=== PATIENT | male | born 1985 | race Caucasian/White ===

== ENCOUNTER 2017-10-03 08:57 | Observation (INO) | payer OTHER ==
[~2017-10-03] VITALS: Ht 170.2 cm; Wt 117.2 kg
[~2017-10-03 08:57] MED LIST: ALBUAER2 INH; ATVUNK PO; FLUT230A INH; MONT1TAB3 PO
[2017-10-03] MEDS ORDERED: HYDROmorphone INJ 2 MG/ML SYR/VIAL IM STA ×2 (09:08→11:36)
[2017-10-03] MEDS ORDERED: KETOROLAC TROMETHAMINE 60 MG/2 ML VIAL IM STA (09:08)
[2017-10-03] MEDS ORDERED: ONDANSETRON 4MG OD TAB PO STA (09:08)
--- NOTE | 2017-10-03 09:12 | EMERGENCY ROOM VISIT NOTE ---
History Report prepared by Errol: Mani Daniels Under the Supervision of: Dr. Tano Ernst M.D. First contact with patient: 08:59 Stated Complaint: BACK PAIN History of Present Illness The patient is a 32 year old male who presents to the Emergency Room with complaints of lower back pain that began 12 hours ago. He has a past medical history of IBS and a previous L3/L4 injury that occurred 4 years ago. He states that his current symptoms are congruent with those of that past injury. Last night, the patient was using the restroom. When he bent over to stand up from the toilet, he began to experience excruciating sharp lower back pain. He then began to feel very lightheaded with muddled hearing and tunnel vision but did not lose consciousness or fall. He was able to ambulate to his bed to lie down. His pain worsens with movement and he is only able to ambulate short distances. His pain is improved with lying flat on his stomach. He denies any fevers, chills, chest pain, shortness of breath, nausea, vomiting, loss of bladder/bowel , weakness, or numbness. He states he did not receive any surgical procedures for his past episode of back pain and he followed up with PT. Source of History: patient Onset: 12 hours ago Position: back (lower) Symptom Intensity: excruciating Quality: sharp Timing: constant Modifying Factors (Worsening): movement Modifying Factors (Relieving): rest Associated Symptoms: No LOC, No fevers, No chills, No chest pain, No SOB, No nausea, No vomiting, No weakness, No numbness Review of Systems See HPI for pertinent positives & negatives. A total of 10 systems reviewed and were otherwise negative. Past Medical & Surgical Medical Problems: (1) Acute low back pain (2) Allergic rhinitis (3) Anxiety disorder (4) Asthma (5) Back pain (6) Dyslipidemia Surgical Problems: (1) Hx of cholecystectomy Family History Patient reports no known family medical history. Social History Smoking Status: Never Smoker Alcohol Use: occasionally Marital Status: Housing Status: lives with significant other Occupation Status: employed, unemployed Current/Historical Medications Scheduled Bupropion (Wellbutrin), 150 MG PO BID Fluticasone-Salmeterol 230/21 Mcg (Advair Hfa 230/21 Mcg), 2 PUFFS INH BID Loratadine (Claritin), 10 MG PO DAILY Montelukast Sodium (Singulair), 10 MG PO HS Tiotropium [place] (Spiriva Handihaler), 1 CAP INH DAILY Vortioxetine HBr (Trintellix), 10 MG PO DAILY Scheduled PRN Albuterol Hfa (Ventolin Hfa), 2-4 PUFFS INH Q6H PRN for SOB/Wheezing Cyclobenzaprine Hcl (Flexeril), 1 TAB PO TID PRN for Muscle Spasms Lorazepam (Lorazepam), 0.5 MG PO TID PRN for Anxiety Naproxen (Naproxen), 1 TAB PO BID PRN for Pain Allergies Coded Allergies: Fentanyl (Verified Allergy, Intermediate, SHORTNESS OF BREATH, 10/03/17) "FEEL BAD" Penicillins (Verified Allergy, Unknown, 10/03/17) Physical Exam Vital Signs Date Time Temp Pulse Resp B/P (MAP) Pulse Ox O2 Delivery O2 Flow Rate FiO2 10/03/17 13:52 83 141/75 96 Room Air 10/03/17 11:15 80 133/75 95 Room Air 10/03/17 08:58 36.7 87 20 145/88 97 Room Air Physical Exam GENERAL: Patient is a healthy-appearing well-nourished male, lying on his stomach, does not want to be touched. HEAD: Normocephalic atraumatic EYES: Ocular movements intact pupils equal and react to light OROPHARYNX mucous membranes are moist no exudates present no erythema or edema present NECK: Supple no nuchal rigidity CHEST: Good equal expansion LUNGS: Clear and equal to auscultation CARDIAC: Normal S1 and S2 ABDOMEN: Soft nontender no guarding BACK: No CVA tenderness, no evidence of saddle anesthesia. EXTREMITIES: No pain upon palpation normal muscle strength in all groups no clubbing cyanosis or edema NEURO: Patient is following commands and answering questions appropriately. Alert and oriented x3 Cranial Nerves 2-12 grossly intact Medical Decision & Procedures ER Provider Diagnostic Interpretation: Radiology results as stated below per my review and radiologist interpretation: MRI OF THE LUMBAR SPINE WITHOUT CONTRAST CLINICAL HISTORY: Severe back pain. COMPARISON STUDY: Lumbar spine MRI June 28, 2012. TECHNIQUE: Utilizing a 1.5 Mely magnet and dedicated coil, multiplanar, multiecho imaging of the lumbar spine was performed without IV contrast. FINDINGS: For purposes of numbering on this exam, the L5-S1 disc space is assigned to axial image 28 of 30. Alignment of the lumbar spine is anatomic. Vertebral body heights are maintained. There is no suspicious marrow replacement. Conus terminates at the lower L1 level. Paravertebral soft tissues are unremarkable. There is moderate disc space narrowing at L5-S1 and mild disc space narrowing at L4-L5. This has progressed since exam of June 28, 2012. L1-2: The central canal and neural foramen are patent. L2-3: The central canal and neural foramen are patent. L3-4: The central canal and neural foramen are patent. L4-5: There is a small central/left paracentral disc protrusion. This has decreased in size since exam of June 28, 2012. There is minimal narrowing of the left lateral recess. Central canal and neural foramen are patent. There is mild facet arthrosis at this level. L5-S1: There is disc space narrowing with a small central disc protrusion which has decreased in size since exam of June 28, 2012. Central canal and neural foramen are patent. There is minimal narrowing of both lateral recesses. IMPRESSION: 1. No acute abnormality within the lumbar spine by MRI. 2. Small central disc protrusion at L5-S1 and small left paracentral disc protrusion at L4-L5 which have decreased in size since exam of June 28, 2012. Patent central canal and neural foramen. Minimal lateral recess narrowing at L4-L5 and L5-S1, as above. Electronically signed by: Chito Gregg M.D. 10/03/2017 11:18 AM Dictated Date/Time: 10/03/2017 11:10 AM Medications Administered Medications (Trade) Dose Ordered Sig/Mahin Route Start Time Stop Time Status Last Admin Dose Admin Hydromorphone HCl (Dilaudid Inj) 2 mg NOW STAT IM 10/03/17 09:08 10/03/17 09:10 DC 10/03/17 09:25 2 MG Ketorolac Tromethamine (Toradol Inj) 60 mg NOW STAT IM 10/03/17 09:08 10/03/17 09:10 DC 10/03/17 09:24 60 MG Ondansetron HCl (Zofran Odt) 4 mg NOW STAT PO 10/03/17 09:08 10/03/17 09:10 DC 10/03/17 09:16 4 MG Hydromorphone HCl (Dilaudid Inj) 2 mg NOW STAT IM 10/03/17 11:36 10/03/17 11:38 DC 10/03/17 11:55 2 MG Lidocaine (Lidoderm Patch 5%) 1 patch QAM STAT TD 10/03/17 11:36 10/03/17 11:38 DC 10/03/17 11:56 1 PATCH Cyclobenzaprine HCl (Flexeril Tab) 10 mg NOW STAT PO 10/03/17 13:39 10/03/17 13:41 DC 10/03/17 13:52 10 MG Dexamethasone Sodium Phosphate 10 mg/Syringe 2.5 ml @ 1 mls/min NOW STAT IM 10/03/17 13:39 10/03/17 13:41 DC 10/03/17 13:58 1 MLS/MIN ED Course 0859: Past medical records reviewed. The patient was evaluated in room B8. A complete history and physical examination was performed. 0908: Ordered Zofran Odt 4 mg PO, Toradol Inj 60 mg IM, Dilaudid Inj 2 mg IM 1136: Ordered Lidocaine 1 patch TD, Dilaudid Inj 2 mg IM 1232: Upon reevaluation, the patient is resting. He will be consulted by orthopedics/physical therapy. Medical Decision Differential diagnosis: Etiologies such as musculoskeletal, disc herniation, fracture, aortic disease, metastatic disease, cord compression, discitis, infection, renal colic, gastrointestinal, acute exacerbation of chronic back pain, sciatica, cauda equina, as well as others were entertained. This is a 32-year-old male who presents to the emergency department complaining of loss of bowel control and severe back pain. The patient has a history of a slipped disc previously approximate 5 years ago. The patient did not require surgery for this. He was given 2 mg of Dilaudid in the emergency department. The patient is unable to walk due to severe pain or even sit up. For this reason he was sent for an MRI of the L-spine. The patient does not have any evidence of slipped disc. He was also given Toradol in the emergency department as well as Decadron an initial dose of Dilaudid. I did discuss the case with case management and had patient seen by physical therapy and occupational therapy who felt that the patient was a poor candidate for rehabilitation. For this reason he was discussed with the hospitalist service who agreed to admit the patient. Medication Reconcilliation Current Medication List: was personally reviewed by me Blood Pressure Screening Patient's blood pressure: Normal blood pressure Blood pressure disposition: Did not require urgent referral Impression Primary Impression: Acute low back pain Scribe Attestation The scribe's documentation has been prepared under my direction and personally reviewed by me in its entirety. I confirm that the note above accurately reflects all work, treatment, procedures, and medical decision making performed by me. Departure Information Dispostion Home / Self-Care Referrals Michael Lozano M.D. (PCP)
[2017-10-03] MEDS ORDERED: ATV5 PO (10:16)
[2017-10-03] MEDS ORDERED: VNTHFA/IN INH (10:16)
[2017-10-03] MEDS ORDERED: BUPR75TA20 PO (10:18)
--- NOTE | 2017-10-03 11:19 | DIAGNOSTIC IMAGING REPORT ---
MRI OF THE LUMBAR SPINE WITHOUT CONTRAST CLINICAL HISTORY: Severe back pain. COMPARISON STUDY: Lumbar spine MRI June 28, 2012. TECHNIQUE: Utilizing a 1.5 Mely magnet and dedicated coil, multiplanar, multiecho imaging of the lumbar spine was performed without IV contrast. FINDINGS: For purposes of numbering on this exam, the L5-S1 disc space is assigned to axial image 28 of 30. Alignment of the lumbar spine is anatomic. Vertebral body heights are maintained. There is no suspicious marrow replacement. Conus terminates at the lower L1 level. Paravertebral soft tissues are unremarkable. There is moderate disc space narrowing at L5-S1 and mild disc space narrowing at L4-L5. This has progressed since exam of June 28, 2012. L1-2: The central canal and neural foramen are patent. L2-3: The central canal and neural foramen are patent. L3-4: The central canal and neural foramen are patent. L4-5: There is a small central/left paracentral disc protrusion. This has decreased in size since exam of June 28, 2012. There is minimal narrowing of the left lateral recess. Central canal and neural foramen are patent. There is mild facet arthrosis at this level. L5-S1: There is disc space narrowing with a small central disc protrusion which has decreased in size since exam of June 28, 2012. Central canal and neural foramen are patent. There is minimal narrowing of both lateral recesses. IMPRESSION: 1. No acute abnormality within the lumbar spine by MRI. 2. Small central disc protrusion at L5-S1 and small left paracentral disc protrusion at L4-L5 which have decreased in size since exam of June 28, 2012. Patent central canal and neural foramen. Minimal lateral recess narrowing at L4-L5 and L5-S1, as above. Electronically signed by: Chito Gregg M.D. 10/03/2017 11:18 AM Dictated Date/Time: 10/03/2017 11:10 AM
[2017-10-03] MEDS ORDERED: LIDODERM (LIDOCAINE) PATCH 5% TD STA (11:36)
[2017-10-03] MEDS ORDERED: DEXAMETHASONE INJ 10 MG in SYRINGE 0 ML IM STA (13:39)
[2017-10-03] MEDS ORDERED: CYCLOBENZAPRINE HCL 5 MG TAB PO STA (13:39)
[2017-10-03] MEDS ORDERED: ACETAMINOPHEN 325 MG TAB PO PRN (14:30)
[2017-10-03] MEDS ORDERED: ONDANSETRON INJ 2 MG/ML 2 ML VIAL IV PRN (14:30)
[2017-10-03] MEDS ORDERED: NAPR500T3 PO (15:23)
[2017-10-03] MEDS ORDERED: VORT10TA12 PO (15:23)
[2017-10-03] MEDS ORDERED: SPRIN/30 INH (15:23)
[2017-10-03] MEDS ORDERED: LORA10TA51 PO (15:23)
[2017-10-03] MEDS ORDERED: CYCL10TA6 PO (15:23)
--- NOTE | 2017-10-03 16:11 | History and Physical ---
History & Physical Date & Time of Service: Oct 03, 2017 ~ 14:00 Chief Complaint: Back Pain Primary Care Physician: Kirill Parson M.D. History of Present Illness 32 year old male who presents to the ED with back pain. Patient reports he had a herniated disc about 5 years ago. He reports that since that time his back pain will flare up occasionally. He will take Flexeril and Percocet, leftover from his injury 5 years ago. Yesterday while standing from the toilet he felt a pulling in his low back and developed sudden onset of low back pain. He was able to talk back to bed to lay down. He reports pain with minimal movement. Pain slightly favors the left side. He is able to walk however he reports that due to the pain he is very rigid making it hard for him to walk and that his legs "will give out". He denies loss of bowel and bladder function. No radiation of the pain into the legs. He reports flu like symptoms for the past few weeks with generalized fatigue, cough, and episodes of nausea and vomiting. He feels like these symptoms are improving. No chest pain or shortness of breath. He denies lightheadedness, dizziness, diaphoresis, and syncopal events. In the ED, patient had a lumbar spine MRI that shows a small disc protrusion but no acute findings. Past Medical/Surgical History Medical Problems: (1) Acute low back pain Status: Resolved (2) Allergic rhinitis Status: Chronic (3) Anxiety disorder Status: Chronic (4) Asthma Status: Chronic (5) Dyslipidemia Status: Chronic Surgical Problems: (1) Hx of cholecystectomy Status: Resolved Family History Patient reports no known family medical history. Social History Smoking Status: Never Smoker Alcohol Use: occasionally Immunizations History of Influenza Vaccine: Yes Influenza Vaccine Date: Aug 29, 2017 History of Tetanus Vaccine?: Yes Tetanus Immunization Date: Aug 27, 2010 History of Pneumococcal: Yes Pneumococcal Date: Aug 26, 2015 History of Hepatitis B Vaccine: Yes Hepatitis Immunization Date: Jun 02, 1994 Multi-Drug Resistant Organisms History of MDRO: No Allergies Coded Allergies: Fentanyl (Verified Allergy, Intermediate, SHORTNESS OF BREATH, 10/03/17) "FEEL BAD" Penicillins (Verified Allergy, Unknown, 10/03/17) Home Medications Scheduled Bupropion (Wellbutrin), 150 MG PO BID Fluticasone-Salmeterol 230/21 Mcg (Advair Hfa 230/21 Mcg), 2 PUFFS INH BID Loratadine (Claritin), 10 MG PO DAILY Montelukast Sodium (Singulair), 10 MG PO HS Tiotropium [place] (Spiriva Handihaler), 1 CAP INH DAILY Vortioxetine HBr (Trintellix), 10 MG PO DAILY Scheduled PRN Albuterol Hfa (Ventolin Hfa), 2-4 PUFFS INH Q6H PRN for SOB/Wheezing Cyclobenzaprine Hcl (Flexeril), 1 TAB PO TID PRN for Muscle Spasms Lorazepam (Lorazepam), 0.5 MG PO TID PRN for Anxiety Naproxen (Naproxen), 1 TAB PO BID PRN for Pain Review of Systems ROS per HPI, all other systems reviewed and negative Physical Exam Vital Signs Date Time Temp Pulse Resp B/P (MAP) Pulse Ox O2 Delivery O2 Flow Rate FiO2 10/03/17 13:52 83 141/75 96 Room Air 10/03/17 11:15 80 133/75 95 Room Air 10/03/17 08:58 36.7 87 20 145/88 97 Room Air General Appearance: WD/WN, no apparent distress Head: normocephalic, atraumatic Eyes: normal inspection, EOMI, sclerae normal ENT: hearing grossly normal, + pertinent finding (mucous membranes moist) Neck: supple, no JVD, trachea midline Respiratory/Chest: lungs clear, normal breath sounds, no respiratory distress Cardiovascular: regular rate, rhythm, no edema, normal peripheral pulses Abdomen/GI: normal bowel sounds, non tender, soft, no organomegaly Back: + pertinent finding (pain with palpation of lumbar spine) Extremities/Musculoskelatal: normal inspection, no calf tenderness, normal capillary refill Neurologic/Psych: no motor/sensory deficits, alert, normal mood/affect, oriented x 3 Skin: normal color, warm/dry Diagnostics Laboratory Results Results Past 24 Hours Test 10/03/17 14:30 Range/Units Diagnostic Radiology LUMBAR SPINE MRI IMPRESSION: 1. No acute abnormality within the lumbar spine by MRI. 2. Small central disc protrusion at L5-S1 and small left paracentral disc protrusion at L4-L5 which have decreased in size since exam of June 28, 2012. Patent central canal and neural foramen. Minimal lateral recess narrowing at L4-L5 and L5-S1, as above. Impression Assessment and Plan BACK PAIN - admit to med/surg - patient presenting with acute onset of lumbar back pain that started last night; has history of disc herniation in 2011 and has had intermittent back pain flares since then - MRI done in the ED shows small disc protrusion; no acute findings - will start Prednisone, around the clock Flexeril; PRN [place] - PT/OT, spine ortho consults ASTHMA - no signs of acute exacerbation - continue home inhalers ANXIETY, DEPRESSION - continue home meds DVT PROPHYLAXIS - SQ Lovenox DISPO - The patient will be placed as observation status for now until further work up is complete. Agree with above H and P. Briefly 32 M comes with severe back pain since last night. Patient says he had herniated disc five years ago and since then he has flares once in awhile. Currently sleeping on his abdomen. Pain is under control with pain meds. Denies chest pain or sob. Has some cough.No nausea p/e Ge alert and oriented. Obese. 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 Y/N: Yes Risk Level: Moderate
[2017-10-03] MEDS ORDERED: IV FLUIDS COMPLETED PRN (16:30)
[2017-10-03 16:55] VITALS: BP 138/77; PULSE 93; TEMP 36.7; O2SAT 93
[2017-10-03 17:00] VITALS: Ht 170.2 cm; Wt 117.2 kg
[2017-10-03 17:33] LABS: HEMATOCRIT 43.7 % (42-52); HEMOGLOBIN 15.4 g/dL (14.0-18.0); MEAN CELL VOLUME 87.8 fL (80-100); MEAN CORPUSCULAR HEMOGLOBIN 30.9 pg (25-34); MEAN CORPUSCULAR HGB CONC 35.2 g/dl (32-36); MEAN PLATELET VOLUME 9.2 fL (7.4-10.4); PLATELET COUNT 216 K/uL (130-400); RED CELL DISTRIBUTION WIDTH CV 13.6 % (11.5-14.5); RED CELL DISTRIBUTION WIDTH SD 43.5 fL (36.4-46.3); WHITE BLOOD COUNT 8.65 K/uL (4.8-10.8)
[2017-10-03 17:58] LABS: BLOOD UREA NITROGEN 15 mg/dl (7-18); CALCIUM 8.6 mg/dl (8.5-10.1); CARBON DIOXIDE 30 mmol/L (21-32); CREATININE 1.21 mg/dl (0.60-1.40); GLUCOSE 164 mg/dl (70-99); POTASSIUM 4.3 mmol/L (3.5-5.1); SODIUM 136 mmol/L (136-145)
[2017-10-03] MEDS: PATIENT'S HEIGHT AND/OR WEIGHT NEEDED SCH ×2 (20:30→22:55)
[2017-10-03] MEDS: MONTELUKAST SOD 10 MG TAB PO SCH (21:29)
[2017-10-03] MEDS: CYCLOBENZAPRINE HCL 10 MG TAB PO SCH (21:29)
[2017-10-03] MEDS: HYDROCODONE/ACETAMINOPHEN 7.5/325MG TAB PO PRN (22:06)
[2017-10-03 22:48] VITALS: BP 134/78; PULSE 89; TEMP 36.7; O2SAT 96
[2017-10-04 07:54] VITALS: BP 120/69; PULSE 72; TEMP 36.8; O2SAT 95
[2017-10-04] MEDS: TRINTELLIX: ORDER AWAITING ACTION SCH ×4 (08:00→23:50)
[2017-10-04] MEDS: HYDROCODONE/ACETAMINOPHEN 7.5/325MG TAB PO PRN ×3 (08:32→23:50)
[2017-10-04] MEDS: LORATADINE 10 MG TAB PO SCH (08:33)
[2017-10-04] MEDS: TIOTROPIUM BROMIDE 5 PUFF/90 MCG INH INH SCH (08:33)
[2017-10-04] MEDS: CYCLOBENZAPRINE HCL 10 MG TAB PO SCH ×3 (08:33→21:17)
[2017-10-04] MEDS: ENOXAPARIN 40 MG/0.4 ML SYR SQ SCH (08:41)
[2017-10-04 10:31] VITALS: O2SAT 94
--- NOTE | 2017-10-04 11:42 | Orthopedic Consultation ---
Orthopedic Consultation Date of Consultation: Oct 04, 2017. Attending Physician: Renetta Gutierrez DO Reason for Consultation: back pain History of Present Illness A pleasant 32-year-old gentleman we are asked to see in consultation for lower back pain. He reports his pain started about a day and a half ago. No specific accident, trauma, fall. No radicular leg pain. He states he had a similar episode about 5 years ago that resolved without treatment. He ambulates independently. Denies bowel or bladder changes. He has been taking some occasional Flexeril which he had at home for his pain. He reports pain was uncontrolled yesterday that he went to the emergency room where he was admitted to the hospitalist service for pain control. He reports standing and sitting reproduce his pain. Lying Prone or activity is palliative. Family History Patient reports no known family medical history. Social History Smoking Status: Never Smoker Alcohol Use: occasionally Housing Status: lives with significant other Allergies Coded Allergies: Fentanyl (Verified Allergy, Intermediate, SHORTNESS OF BREATH, 10/03/17) "FEEL BAD" Penicillins (Verified Allergy, Unknown, 10/03/17) Home Medications Scheduled Bupropion (Wellbutrin), 150 MG PO BID Fluticasone-Salmeterol 230/21 Mcg (Advair Hfa 230/21 Mcg), 2 PUFFS INH BID Loratadine (Claritin), 10 MG PO DAILY Montelukast Sodium (Singulair), 10 MG PO HS Tiotropium [place] (Spiriva Handihaler), 1 CAP INH DAILY Vortioxetine HBr (Trintellix), 10 MG PO DAILY Scheduled PRN Albuterol Hfa (Ventolin Hfa), 2-4 PUFFS INH Q6H PRN for SOB/Wheezing Cyclobenzaprine Hcl (Flexeril), 1 TAB PO TID PRN for Muscle Spasms Lorazepam (Lorazepam), 0.5 MG PO TID PRN for Anxiety Naproxen (Naproxen), 1 TAB PO BID PRN for Pain Current Inpatient Medications Current Inpatient Medications Medications (Trade) Dose Ordered Sig/Mahin Route Start Time Stop Time Status Last Admin Dose Admin Enoxaparin Sodium (Lovenox Inj) 40 mg Q24H SQ 10/04/17 09:00 11/03/17 08:59 Acetaminophen (Tylenol Tab) 650 mg Q4H PRN PO 10/03/17 14:30 11/02/17 14:29 Ondansetron HCl (Zofran Inj) 4 mg Q6H PRN IV 10/03/17 14:30 11/02/17 14:29 Prednisone (PredniSONE TAB) 40 mg DAILY PO 10/03/17 15:15 10/07/17 09:01 10/04/17 08:33 40 MG Cyclobenzaprine HCl (Flexeril Tab) 10 mg TID PO 10/03/17 21:00 11/02/17 20:59 10/04/17 08:33 10 MG Acetaminophen/ Hydrocodone Bitart ([place] 7.5/325 Tab) 1 tab Q8H PRN PO 10/03/17 15:15 10/17/17 15:14 10/04/17 08:32 1 TAB Bupropion HCl (Wellbutrin Tab) 150 mg BID PO 10/03/17 21:00 11/02/17 20:59 10/04/17 08:33 150 MG Loratadine (Claritin Tab) 10 mg DAILY PO 10/04/17 09:00 11/03/17 08:59 10/04/17 08:33 10 MG Montelukast Sodium (Singulair Tab) 10 mg HS PO 10/03/17 21:00 11/02/17 20:59 10/03/17 21:29 10 MG Tiotropium [place] (Spiriva Handihaler Inhaler) 1 puff DAILY INH 10/04/17 09:00 11/03/17 08:59 10/04/17 08:33 1 PUFF Miscellaneous Information (Order Awaiting Action) 1 ea QS N/A 10/04/17 00:00 11/03/17 00:00 Miscellaneous (Iv Fluids Completed) 1 ea PRN PRN N/A 10/03/17 16:30 10/03/18 16:29 Salmeterol Xinafoate/ Fluticasone (Advair Hfa 230/ 21 Inh) 2 puff BID INH 10/04/17 09:00 11/03/17 08:59 Review of Systems back pain Physical Exam Date Time Temp Pulse Resp B/P (MAP) Pulse Ox O2 Delivery O2 Flow Rate FiO2 10/04/17 10:31 94 Room Air 10/04/17 08:00 Room Air 10/04/17 07:54 36.8 72 16 120/69 (86) 95 Room Air 10/03/17 23:45 Room Air 10/03/17 22:48 36.7 89 18 134/78 (96) 96 Room Air 10/03/17 17:00 Room Air 10/03/17 17:00 Room Air 10/03/17 16:55 36.7 93 20 138/77 (97) 93 Room Air 10/03/17 16:29 88 127/97 96 10/03/17 13:52 83 141/75 96 Room Air Patient is lying in a prone position in bed. He reports he is unable to sit on the edge of the bed for me to do a more thorough bench exam. He has no abnormal skin markings with focal lumbar spine. He is superficially tender to palpation throughout the midline lower lumbar spine as well as paravertebral musculature. Lower extremities neurovascularly intact. Calves are soft and nontender bilaterally. General Appearance: + mild distress Head: normocephalic Eyes: normal inspection ENT: hearing grossly normal Neck: supple Respiratory/Chest: no respiratory distress Cardiovascular: regular rate, rhythm Abdomen/GI: soft Back: + muscle spasm, + paravertebral tenderness Extremities/Musculoskelatal: normal inspection, normal capillary refill Neurologic/Psych: oriented x 3 Skin: normal color Laboratory Results Last 24 Hours Test 10/03/17 17:21 White Blood Count 8.65 K/uL Red Blood Count 4.98 M/uL Hemoglobin 15.4 g/dL Hematocrit 43.7 % Mean Corpuscular Volume 87.8 fL Mean Corpuscular Hemoglobin 30.9 pg Mean Corpuscular Hemoglobin Concent 35.2 g/dl RDW Standard Deviation 43.5 fL RDW Coefficient of Variation 13.6 % Platelet Count 216 K/uL Mean Platelet Volume 9.2 fL Prothrombin Time 10.2 SECONDS Prothromb Time International Ratio 1.0 Sodium Level 136 mmol/L Potassium Level 4.3 mmol/L Chloride Level 103 mmol/L Carbon Dioxide Level 30 mmol/L Anion Gap 3.0 mmol/L Blood Urea Nitrogen 15 mg/dl Creatinine 1.21 mg/dl Estimated GFR () 90.0 Estimated GFR (Non- 77.6 BUN/Creatinine Ratio 12.1 Random Glucose 164 mg/dl Calcium Level 8.6 mg/dl Patient Name: NEDA BISHOP Unit Number: [id number] Dictated: 10/03/171109 Transcribed: 10/03/171109 JA Printed Date/Time: [~ rep prt dt]/[~ rep prt tm] [~ rep ct labl] - [~ rep ct ivnm] [facility] [place] [address] Dictated: 10/03/171109 Transcribed: 10/03/171109 JA Printed Date/Time: [~ rep prt dt]/[~ rep prt tm] [~ rep ct labl] - [~ rep ct ivnm] [~ rep ct add3]] MRI OF THE LUMBAR SPINE WITHOUT CONTRAST CLINICAL HISTORY: Severe back pain. COMPARISON STUDY: Lumbar spine MRI June 28, 2012. TECHNIQUE: Utilizing a 1.5 Mley magnet and dedicated coil, multiplanar, multiecho imaging of the lumbar spine was performed without IV contrast. FINDINGS: For purposes of numbering on this exam, the L5-S1 disc space is assigned to axial image 28 of 30. Alignment of the lumbar spine is anatomic. Vertebral body heights are maintained. There is no suspicious marrow replacement. Conus terminates at the lower L1 level. Paravertebral soft tissues are unremarkable. There is moderate disc space narrowing at L5-S1 and mild disc space narrowing at L4-L5. This has progressed since exam of June 28, 2012. L1-2: The central canal and neural foramen are patent. L2-3: The central canal and neural foramen are patent. L3-4: The central canal and neural foramen are patent. L4-5: There is a small central/left paracentral disc protrusion. This has decreased in size since exam of June 28, 2012. There is minimal narrowing of the left lateral recess. Central canal and neural foramen are patent. There is mild facet arthrosis at this level. L5-S1: There is disc space narrowing with a small central disc protrusion which has decreased in size since exam of June 28, 2012. Central canal and neural foramen are patent. There is minimal narrowing of both lateral recesses. IMPRESSION: 1. No acute abnormality within the lumbar spine by MRI. 2. Small central disc protrusion at L5-S1 and small left paracentral disc protrusion at L4-L5 which have decreased in size since exam of June 28, 2012. Patent central canal and neural foramen. Minimal lateral recess narrowing at L4-L5 and L5-S1, as above. Electronically signed by: Chito Gregg M.D. 10/03/2017 11:18 AM Dictated Date/Time: 10/03/2017 11:10 AM The status of this report is Signed. Draft = Not yet reviewed or approved by Radiologist. Signed = Reviewed and approved by Radiologist. <AttendingPhy></AttendingPhy> <FamilyPhy>No Doctor, Assigned</FamilyPhy> < PrimaryPhy>No Doctor, Assigned</PrimaryPhy> <UnitNumber>[id number]</UnitNumber> <VisitNumber>[id number]</VisitNumber> <PatientName>NEDA BISHOP CA</ PatientName> <DateOfBirth>1985</DateOfBirth> <Location>C[facility]</Location> < ServiceDate>10/03/17</ServiceDate> <MNE>ESINDI</MNE> <OrderingPhy>Tano Ernst MD</OrderingPhy> <OrderingPhyMNE>f rep ord dr alcocer</OrderingPhyMNE> < DictatingPhyMNE>f rep dict dr alcocer</DictatingPhyMNE> <CCListMNE>f rep ct leodan</ CCListMNE> <AdmittingPhyMNE>f pt admit dr alcocer</AdmittingPhyMNE> <AttendingPhyMNE >f pt attend dr alcocer</AttendingPhyMNE> <ConsultingPhyMNE>f pt consult dr alcocer</ConsultingPhyMNE> <FamilyPhyMNE>f pt fam dr alcocer</FamilyPhyMNE> <OtherPhyMNE>f pt other dr alcocer</OtherPhyMNE> < PrimaryPhyMNE>f pt prim care dr alcocer</PrimaryPhyMNE> <ReferringPhyMNE>f pt referring dr alcocer</ReferringPhyMNE> Assessment & Plan Assessment: Acute lower back pain Plan: MRI is also been reviewed with Dr. Rivera. There are no acute surgical indications. Would recommend pain control measures coupled with physical therapy. If this does not make any improvement in his pain would consider pain management evaluation. We will sign off for now. Please not hesitate to contact us if you have any further questions.
[2017-10-04 12:27] VITALS: BP 129/62; PULSE 82; TEMP 36.7; O2SAT 91
[2017-10-04] MEDS: FLUTIC INH SCH ×2 (14:28→21:17)
[2017-10-04] MEDS: SALMET INH SCH ×2 (14:28→21:17)
[2017-10-04 15:30] VITALS: BP 122/62; PULSE 88; TEMP 36.7; O2SAT 94
--- NOTE | 2017-10-04 17:30 | Progress Note ---
Subjective Date of Service: Oct 04, 2017. Subjective Pt evaluation today including: conversation w/ patient, physical exam, lab review, review of studies, review of inpatient medication list Saw/examined the patient in room 360 He continues to have low back pain laying on his stomach Review of Systems Respiratory: No shortness of breath Cardiac: No chest pain Musculoskeletal: + see HPI, + joint pain, + muscle pain Heme: No abnormal bleeding/bruising Medications Current Inpatient Medications Medications (Trade) Dose Ordered Sig/Mahin Route Start Time Stop Time Status Last Admin Dose Admin Enoxaparin Sodium (Lovenox Inj) 40 mg Q24H SQ 10/04/17 09:00 11/03/17 08:59 Acetaminophen (Tylenol Tab) 650 mg Q4H PRN PO 10/03/17 14:30 11/02/17 14:29 Ondansetron HCl (Zofran Inj) 4 mg Q6H PRN IV 10/03/17 14:30 11/02/17 14:29 Prednisone (PredniSONE TAB) 40 mg DAILY PO 10/03/17 15:15 10/07/17 09:01 10/04/17 08:33 40 MG Cyclobenzaprine HCl (Flexeril Tab) 10 mg TID PO 10/03/17 21:00 11/02/17 20:59 10/04/17 15:13 10 MG Bupropion HCl (Wellbutrin Tab) 150 mg BID PO 10/03/17 21:00 11/02/17 20:59 10/04/17 08:33 150 MG Loratadine (Claritin Tab) 10 mg DAILY PO 10/04/17 09:00 11/03/17 08:59 10/04/17 08:33 10 MG Montelukast Sodium (Singulair Tab) 10 mg HS PO 10/03/17 21:00 11/02/17 20:59 10/03/17 21:29 10 MG Tiotropium [place] (Spiriva Handihaler Inhaler) 1 puff DAILY INH 10/04/17 09:00 11/03/17 08:59 10/04/17 08:33 1 PUFF Miscellaneous Information (Order Awaiting Action) 1 ea QS N/A 10/04/17 00:00 11/03/17 00:00 Miscellaneous (Iv Fluids Completed) 1 ea PRN PRN N/A 10/03/17 16:30 10/03/18 16:29 Salmeterol Xinafoate/ Fluticasone (Advair Hfa 230/ 21 Inh) 2 puff BID INH 10/04/17 09:00 11/03/17 08:59 10/04/17 14:28 2 PUFF Acetaminophen/ Hydrocodone Bitart ([place] 7.5/325 Tab) 1 tab Q6 PRN PO 10/04/17 13:45 10/17/17 15:14 10/04/17 15:18 1 TAB Objective Vital Signs Date Time Temp Pulse Resp B/P (MAP) Pulse Ox O2 Delivery O2 Flow Rate FiO2 10/04/17 15:30 36.7 88 20 122/62 (82) 94 Room Air 10/04/17 12:27 36.7 82 16 129/62 (84) 91 Room Air 10/04/17 10:31 94 Room Air 10/04/17 08:00 Room Air 10/04/17 07:54 36.8 72 16 120/69 (86) 95 Room Air 10/03/17 23:45 Room Air 10/03/17 22:48 36.7 89 18 134/78 (96) 96 Room Air Physical Exam General Appearance: no apparent distress, + obese Respiratory/Chest: lungs clear, normal breath sounds, no respiratory distress, no accessory muscle use Cardiovascular: regular rate, rhythm, no edema, no murmur Extremities: + pertinent finding (tender to palpation in the sacral region of back; painful ROM) Laboratory Results Last 24 Hours Test 10/03/17 17:21 White Blood Count 8.65 K/uL Red Blood Count 4.98 M/uL Hemoglobin 15.4 g/dL Hematocrit 43.7 % Mean Corpuscular Volume 87.8 fL Mean Corpuscular Hemoglobin 30.9 pg Mean Corpuscular Hemoglobin Concent 35.2 g/dl RDW Standard Deviation 43.5 fL RDW Coefficient of Variation 13.6 % Platelet Count 216 K/uL Mean Platelet Volume 9.2 fL Prothrombin Time 10.2 SECONDS Prothromb Time International Ratio 1.0 Sodium Level 136 mmol/L Potassium Level 4.3 mmol/L Chloride Level 103 mmol/L Carbon Dioxide Level 30 mmol/L Anion Gap 3.0 mmol/L Blood Urea Nitrogen 15 mg/dl Creatinine 1.21 mg/dl Estimated GFR () 90.0 Estimated GFR (Non- 77.6 BUN/Creatinine Ratio 12.1 Random Glucose 164 mg/dl Calcium Level 8.6 mg/dl Assessment and Plan This is a 32 year old male with a PMH of asthma, depression - presents with lower back pain Lower Back Pain L5-S1 Protrusion Muscle Spasm patient continues to have pain Lumbar spine MRI improved from previous appreciate ortho input - no surgical intervention continued PT/OT possible rehab discharge will use [place] PRN for pain, Flexeril for muscle spasm prednisone x5 days Asthma continue home inhalers Depression continue home medications; controlled Morbid Obesity patient with BMI >40 counseled on weight loss; patient states he is working on it on his own DVT ppx Lovenox FULL CODE
[2017-10-04] MEDS: MONTELUKAST SOD 10 MG TAB PO SCH (21:17)
[2017-10-04 22:52] VITALS: BP 111/71; PULSE 84; TEMP 36.8; O2SAT 96
[2017-10-05] MEDS: SALMET INH SCH ×2 (07:17→20:28)
[2017-10-05] MEDS: FLUTIC INH SCH ×2 (07:17→20:28)
[2017-10-05] MEDS: TRINTELLIX: ORDER AWAITING ACTION SCH ×2 (07:17→16:00)
[2017-10-05] MEDS: LORATADINE 10 MG TAB PO SCH (07:18)
[2017-10-05] MEDS: TIOTROPIUM BROMIDE 5 PUFF/90 MCG INH INH SCH (07:18)
[2017-10-05] MEDS: CYCLOBENZAPRINE HCL 10 MG TAB PO SCH ×3 (07:19→20:28)
[2017-10-05] MEDS: ENOXAPARIN 40 MG/0.4 ML SYR SQ SCH (07:20)
[2017-10-05 07:24] VITALS: BP 134/83; PULSE 78; TEMP 37; O2SAT 95
[2017-10-05 08:08] VITALS: O2SAT 95
[2017-10-05] MEDS: HYDROCODONE/ACETAMINOPHEN 7.5/325MG TAB PO PRN ×2 (09:04→19:02)
--- NOTE | 2017-10-05 14:35 | Progress Note ---
Subjective Date of Service: Oct 05, 2017. Subjective Pt evaluation today including: conversation w/ patient, physical exam, lab review, review of studies, review of inpatient medication list Saw/examined the patient in room 360 +pain persists states he's taking a nap and doesn't want to talk right now Review of Systems Constitutional: + weakness Musculoskeletal: + joint pain Medications Current Inpatient Medications Medications (Trade) Dose Ordered Sig/Mahin Route Start Time Stop Time Status Last Admin Dose Admin Enoxaparin Sodium (Lovenox Inj) 40 mg Q24H SQ 10/04/17 09:00 11/03/17 08:59 10/05/17 07:20 40 MG Acetaminophen (Tylenol Tab) 650 mg Q4H PRN PO 10/03/17 14:30 11/02/17 14:29 Ondansetron HCl (Zofran Inj) 4 mg Q6H PRN IV 10/03/17 14:30 11/02/17 14:29 Prednisone (PredniSONE TAB) 40 mg DAILY PO 10/03/17 15:15 10/07/17 09:01 10/05/17 07:19 40 MG Cyclobenzaprine HCl (Flexeril Tab) 10 mg TID PO 10/03/17 21:00 11/02/17 20:59 10/05/17 07:19 10 MG Bupropion HCl (Wellbutrin Tab) 150 mg BID PO 10/03/17 21:00 11/02/17 20:59 10/05/17 07:19 150 MG Loratadine (Claritin Tab) 10 mg DAILY PO 10/04/17 09:00 11/03/17 08:59 10/05/17 07:18 10 MG Montelukast Sodium (Singulair Tab) 10 mg HS PO 10/03/17 21:00 11/02/17 20:59 10/04/17 21:17 10 MG Tiotropium [place] (Spiriva Handihaler Inhaler) 1 puff DAILY INH 10/04/17 09:00 11/03/17 08:59 10/05/17 07:18 1 PUFF Miscellaneous Information (Order Awaiting Action) 1 ea QS N/A 10/04/17 00:00 11/03/17 00:00 Miscellaneous (Iv Fluids Completed) 1 ea PRN PRN N/A 10/03/17 16:30 10/03/18 16:29 Salmeterol Xinafoate/ Fluticasone (Advair Hfa 230/ 21 Inh) 2 puff BID INH 10/04/17 09:00 11/03/17 08:59 10/05/17 07:17 2 PUFF Acetaminophen/ Hydrocodone Bitart ([place] 7.5/325 Tab) 1 tab Q6 PRN PO 10/04/17 13:45 10/17/17 15:14 10/05/17 09:04 1 TAB Objective Vital Signs Date Time Temp Pulse Resp B/P (MAP) Pulse Ox O2 Delivery O2 Flow Rate FiO2 10/05/17 08:08 95 Room Air 10/05/17 07:24 37.0 78 18 134/83 (100) 95 Room Air 10/04/17 23:50 Room Air 10/04/17 22:52 36.8 84 20 111/71 (84) 96 Room Air 10/04/17 20:00 Room Air 10/04/17 15:30 36.7 88 20 122/62 (82) 94 Room Air Physical Exam General Appearance: no apparent distress, + obese Extremities: + pertinent finding (decreased ROM; painful to tenderness) Assessment and Plan This is a 32 year old male with a PMH of asthma, depression - presents with lower back pain Lower Back Pain L5-S1 Protrusion Muscle Spasm 10/05 [place] PRN, Flexeril prednisone total 5 days patient refusing to participate with PT/OT plan to d/c home consulted pain management for outpatient regimen 10/04 patient continues to have pain Lumbar spine MRI improved from previous appreciate ortho input - no surgical intervention continued PT/OT possible rehab discharge will use [place] PRN for pain, Flexeril for muscle spasm prednisone x5 days Asthma continue home inhalers Depression continue home medications; controlled Morbid Obesity patient with BMI >40 counseled on weight loss; patient states he is working on it on his own DVT ppx Lovenox FULL CODE
[2017-10-05 16:00] VITALS: BP 124/77; PULSE 79; TEMP 36.4; O2SAT 97
[2017-10-05] MEDS: MONTELUKAST SOD 10 MG TAB PO SCH (20:28)
[2017-10-05 22:56] VITALS: BP 128/85; PULSE 80; TEMP 37.7; O2SAT 97
[2017-10-06] MEDS: HYDROCODONE/ACETAMINOPHEN 7.5/325MG TAB PO PRN ×2 (01:07→18:20)
[2017-10-06 07:19] VITALS: BP 125/78; PULSE 92; TEMP 36.8; O2SAT 93
[2017-10-06] MEDS: VORTIOXETINE HBR 10 MG TAB PO SCH (09:00)
[2017-10-06] MEDS: FLUTIC INH SCH ×2 (09:45→20:56)
[2017-10-06] MEDS: SALMET INH SCH ×2 (09:45→20:56)
[2017-10-06] MEDS: TIOTROPIUM BROMIDE 5 PUFF/90 MCG INH INH SCH (09:46)
[2017-10-06] MEDS: ENOXAPARIN 40 MG/0.4 ML SYR SQ SCH (09:48)
[2017-10-06] MEDS: GABAPENTIN 300 MG CAP PO SCH ×3 (09:49→20:56)
[2017-10-06] MEDS: LORATADINE 10 MG TAB PO SCH (09:49)
[2017-10-06] MEDS: LIDODERM (LIDOCAINE) PATCH 5% TD SCH (09:51)
[2017-10-06] MEDS: BACLOFEN 10 MG TAB PO SCH ×3 (09:51→20:56)
[2017-10-06] MEDS: MELOXICAM 7.5 MG TAB PO SCH ×2 (09:51→20:56)
--- NOTE | 2017-10-06 10:33 | Pain Management Consultation ---
Pain Management Consultation Date of Consultation Oct 06, 2017. Reason for Consultation Low back pain Pain Location 1 - History 32-year-old obese male with 100% axial low back pain. He states that he was getting up from his toilet and felt sudden onset of pain without known injury. He reports 1 prior episode of the same pain occurring in 2011 that resolved with physical therapy. He reports that it's difficult to sleep and walk secondary to pain. He reports that pain is improved with rest and narcotics. He admits that a significant component of his pain is secondary to spasm and characterizes his pain as aching cramping and tight. He denies any distal radicular symptoms, bowel or bladder incontinence, motor weakness, foot drop, falls, fever, chills, other constitutional complaints. He reports that it's been difficult to perform physical therapy during this admission secondary to pain. He does note that his pain has slightly improved since admission. Pain is currently ranging from 3.5-10 out of 10 depending on activity level. Past Medical/Surgical History (1) Acute low back pain (2) Asthma exacerbation (3) Back pain (4) Allergic rhinitis (5) Dyslipidemia (6) Asthma (7) Anxiety disorder (8) Hx of cholecystectomy Family History Patient reports no known family medical history. 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 Allergies Coded Allergies: Fentanyl (Verified Allergy, Intermediate, SHORTNESS OF BREATH, 10/03/17) "FEEL BAD" Penicillins (Verified Allergy, Unknown, 10/03/17) Medications Current Inpatient Medications Medications (Trade) Dose Ordered Sig/Mahin Route Start Time Stop Time Status Last Admin Dose Admin Enoxaparin Sodium (Lovenox Inj) 40 mg Q24H SQ 10/04/17 09:00 11/03/17 08:59 10/06/17 09:48 40 MG Acetaminophen (Tylenol Tab) 650 mg Q4H PRN PO 10/03/17 14:30 11/02/17 14:29 Ondansetron HCl (Zofran Inj) 4 mg Q6H PRN IV 10/03/17 14:30 11/02/17 14:29 Prednisone (PredniSONE TAB) 40 mg DAILY PO 10/03/17 15:15 1/20/18 09:01 10/06/17 09:47 40 MG Bupropion HCl (Wellbutrin Tab) 150 mg BID PO 10/03/17 21:00 11/02/17 20:59 10/06/17 09:47 150 MG Loratadine (Claritin Tab) 10 mg DAILY PO 10/04/17 09:00 11/03/17 08:59 10/06/17 09:49 10 MG Montelukast Sodium (Singulair Tab) 10 mg HS PO 10/03/17 21:00 11/02/17 20:59 10/05/17 20:28 10 MG Tiotropium [place] (Spiriva Handihaler Inhaler) 1 puff DAILY INH 10/04/17 09:00 11/03/17 08:59 10/06/17 09:46 1 PUFF Miscellaneous (Iv Fluids Completed) 1 ea PRN PRN N/A 10/03/17 16:30 10/03/18 16:29 Salmeterol Xinafoate/ Fluticasone (Advair Hfa 230/ 21 Inh) 2 puff BID INH 10/04/17 09:00 11/03/17 08:59 10/06/17 09:45 2 PUFF Acetaminophen/ Hydrocodone Bitart ([place] 7.5/325 Tab) 1 tab Q6 PRN PO 10/04/17 13:45 10/17/17 15:14 10/06/17 01:07 1 TAB Vortioxetine (Trintellix) 10 mg DAILY PO 10/06/17 09:00 11/05/17 08:59 10/06/17 09:00 10 MG Meloxicam (Mobic Tab) 7.5 mg BID PO 10/06/17 09:00 11/05/17 08:59 10/06/17 09:51 7.5 MG Lidocaine (Lidoderm Patch 5%) 1 patch QAM TD 10/06/17 09:00 11/05/17 08:59 10/06/17 09:51 1 PATCH Miscellaneous (Remove Lidoderm Patch) 1 ea DAILY@21 N/A 10/06/17 21:00 11/05/17 20:59 Baclofen (Lioresal Tab) 10 mg TID PO 10/06/17 09:00 11/05/17 08:59 10/06/17 09:51 10 MG Gabapentin (Neurontin Cap) 300 mg TID PO 10/06/17 09:00 11/05/17 08:59 10/06/17 09:49 300 MG Review of Systems 10 point review of systems was otherwise negative aside from HPI Physical Exam Height & Weight: Height 5 feet, 7.00 inches. Weight 117.250 (Kilograms) 258 (Pounds) Last Vital Signs Documentation Date Time Temp Pulse Resp B/P (MAP) Pulse Ox O2 Delivery O2 Flow Rate FiO2 10/06/17 07:19 36.8 92 18 125/78 (94) 93 Room Air Exam: GENERAL: 32-year-old obese male who is awake, alert and oriented. Appears well developed. Is in no distress at the present time. Upon insurance to the room he was sleeping on his belly PSYCHIATRIC: Demonstrates normal and clear sensorium. Mood and affect are appropriate. Short-term and long-term memory is intact. HEAD AND NECK: No obvious trauma. Demonstrates full range of motion of the cervical spine. No lymphadenopathy is noted. Trachea midline. No thyromegaly noted. EARS, EYES AND NOSE: Mucous membranes pink and moist. No mucosal lesions noted. Tongue midline. LUNGS: Clear to auscultation in all lung león. Normal chest excursion. CARDIAC: Regular rate and rhythm ABDOMEN: Normal bowel sounds. Soft nontender. No organomegaly appreciated. Obese BACK: Inspection of the lumbar spine demonstrates normal curvatures. No lesions are noted in the lumbar spine region. Provocative testing of the facet joints is marginally positive over bilateral L5 to S1. The sacroiliac joints and greater trochanters bilaterally are nontender. Mild to moderate myofascial tenderness without any discrete trigger points are noted over the lumbar paraspinous musculature. Neurologically, straight leg raising is equivocal bilaterally past 90 NEUROLOGICAL: Cranial nerves II through XII grossly intact. No gross sensory or motor deficits noted in the upper extremity. Sensation and motor strength in the lower extremity are symmetrical without deficit. No pathologic reflexes are noted in the lower extremities. Gait is not observed. Patient did not feel comfortable getting out of bed Reflexes: patellar Reflex L [+2] R [+2] Achilles Reflex L [+]2 R [+2] Laboratory Laboratory Results (Last CBC): 10/03/17 17:21 Imaging MRI: non enhanced, reports reviewed MRI Findings Patient: NEDA BISHOP Address1: [address] [facility] Rec: [id number] Address2: [facility] [address] ID: [id number] [facility] Zip: [place] [address] Date: 1985 Sex: M Room/Bed: Ref Phy: No Doctor, Assigned SC: BABARB Att Phy: Report #: [id number] Phuong Phy: No Doctor, Assigned Test: LSWOC Admit Phy: Food Service Sales Representatives: CUSTCH Interpreting Phy: Chito Gregg MD Diagnosis: BACK PAIN Ordering Phy: Tano Ernst MD Service Date: 10/03/17 Admit Date: 10/03/17 MNE: [id number] CONF: DICTATED BY: Chito Gregg MD]] CC: Tano Ernst MD No Doctor, Assigned Endcc: [~ rep ct add3]] MRI OF THE LUMBAR SPINE WITHOUT CONTRAST CLINICAL HISTORY: Severe back pain. COMPARISON STUDY: Lumbar spine MRI June 28, 2012. TECHNIQUE: Utilizing a 1.5 Mely magnet and dedicated coil, multiplanar, multiecho imaging of the lumbar spine was performed without IV contrast. FINDINGS: For purposes of numbering on this exam, the L5-S1 disc space is assigned to axial image 28 of 30. Alignment of the lumbar spine is anatomic. Vertebral body heights are maintained. There is no suspicious marrow replacement. Conus terminates at the lower L1 level. Paravertebral soft tissues are unremarkable. There is moderate disc space narrowing at L5-S1 and mild disc space narrowing at L4-L5. This has progressed since exam of June 28, 2012. L1-2: The central canal and neural foramen are patent. L2-3: The central canal and neural foramen are patent. L3-4: The central canal and neural foramen are patent. L4-5: There is a small central/left paracentral disc protrusion. This has decreased in size since exam of June 28, 2012. There is minimal narrowing of the left lateral recess. Central canal and neural foramen are patent. There is mild facet arthrosis at this level. L5-S1: There is disc space narrowing with a small central disc protrusion which has decreased in size since exam of June 28, 2012. Central canal and neural foramen are patent. There is minimal narrowing of both lateral recesses. IMPRESSION: 1. No acute abnormality within the lumbar spine by MRI. 2. Small central disc protrusion at L5-S1 and small left paracentral disc protrusion at L4-L5 which have decreased in size since exam of June 28, 2012. Patent central canal and neural foramen. Minimal lateral recess narrowing at L4-L5 and L5-S1, as above. Opioid Risk Assessment Risk assessment performed, minimal risk identified Assessment 1. Small disc protrusion at L4 to 5 and L5-S1 2. Lumbago 3. Obesity Recommendations 1. Recommend initiation of gabapentin 300 mg by mouth 3 times a day. 2. Recommend conversion from Flexeril to baclofen 10 mg by mouth every 8 when necessary spasm 3. Recommend initiation of Lidoderm patch 4. Patient should participate in physical therapy. We had a long talk since he spontaneously recovered with therapy in the past about planning for 6 weeks of outpatient physical therapy prior to any interventional pain treatment. 5. I gave him my office contact information so that he could contact us after he has completed a course of outpatient physical therapy should he continue to have pain. 6. Thank you for this consultation please call with any questions
--- NOTE | 2017-10-06 13:48 | Progress Note ---
Subjective Date of Service: Oct 06, 2017. Subjective Pt evaluation today including: conversation w/ patient, physical exam, lab review, review of studies, review of inpatient medication list Saw/examined the patient in room 360 Laying on his stomach; tells me pain is slightly improved, but he cannot stand up Empty tray of food at bedside; states he struggled to eat due to the pain Review of Systems Musculoskeletal: + joint pain Medications Current Inpatient Medications Medications (Trade) Dose Ordered Sig/Mahin Route Start Time Stop Time Status Last Admin Dose Admin Enoxaparin Sodium (Lovenox Inj) 40 mg Q24H SQ 10/04/17 09:00 11/03/17 08:59 10/06/17 09:48 40 MG Acetaminophen (Tylenol Tab) 650 mg Q4H PRN PO 10/03/17 14:30 11/02/17 14:29 Ondansetron HCl (Zofran Inj) 4 mg Q6H PRN IV 10/03/17 14:30 11/02/17 14:29 Prednisone (PredniSONE TAB) 40 mg DAILY PO 10/03/17 15:15 10/07/17 09:01 10/06/17 09:47 40 MG Bupropion HCl (Wellbutrin Tab) 150 mg BID PO 10/03/17 21:00 11/02/17 20:59 10/06/17 09:47 150 MG Loratadine (Claritin Tab) 10 mg DAILY PO 10/04/17 09:00 11/03/17 08:59 10/06/17 09:49 10 MG Montelukast Sodium (Singulair Tab) 10 mg HS PO 10/03/17 21:00 11/02/17 20:59 10/05/17 20:28 10 MG Tiotropium [place] (Spiriva Handihaler Inhaler) 1 puff DAILY INH 10/04/17 09:00 11/03/17 08:59 10/06/17 09:46 1 PUFF Miscellaneous (Iv Fluids Completed) 1 ea PRN PRN N/A 10/03/17 16:30 10/03/18 16:29 Salmeterol Xinafoate/ Fluticasone (Advair Hfa 230/ 21 Inh) 2 puff BID INH 10/04/17 09:00 11/03/17 08:59 10/06/17 09:45 2 PUFF Acetaminophen/ Hydrocodone Bitart ([place] 7.5/325 Tab) 1 tab Q6 PRN PO 10/04/17 13:45 10/17/17 15:14 10/06/17 01:07 1 TAB Vortioxetine (Trintellix) 10 mg DAILY PO 10/06/17 09:00 11/05/17 08:59 10/06/17 09:00 10 MG Meloxicam (Mobic Tab) 7.5 mg BID PO 10/06/17 09:00 11/05/17 08:59 10/06/17 09:51 7.5 MG Lidocaine (Lidoderm Patch 5%) 1 patch QAM TD 10/06/17 09:00 11/05/17 08:59 10/06/17 09:51 1 PATCH Miscellaneous (Remove Lidoderm Patch) 1 ea DAILY@21 N/A 10/06/17 21:00 11/05/17 20:59 Baclofen (Lioresal Tab) 10 mg TID PO 10/06/17 09:00 11/05/17 08:59 10/06/17 09:51 10 MG Gabapentin (Neurontin Cap) 300 mg TID PO 10/06/17 09:00 11/05/17 08:59 10/06/17 09:49 300 MG Objective Vital Signs Date Time Temp Pulse Resp B/P (MAP) Pulse Ox O2 Delivery O2 Flow Rate FiO2 10/06/17 08:00 Room Air 10/06/17 07:19 36.8 92 18 125/78 (94) 93 Room Air 10/05/17 23:15 Room Air 10/05/17 22:56 37.7 80 17 128/85 (99) 97 Room Air 10/05/17 16:00 36.4 79 18 124/77 (93) 97 Room Air 10/05/17 15:45 Room Air Physical Exam General Appearance: no apparent distress, + obese Respiratory/Chest: no respiratory distress, no accessory muscle use Comments: decreased and painful ROM of back; no muscle spasms noted; no erythema, swelling /redness Assessment and Plan This is a 32 year old male with a PMH of asthma, depression - presents with lower back pain Lower Back Pain L5-S1 Protrusion Muscle Spasm 10/06 appreciate pain management input will give gabapentin 300mg TID, Baclofen for muscle spasms [place] PRN for pain, Meloxicam and Lidoderm patch added no new updates; stable for discharge; home vs. rehab - he is refusing to work with PT/OT due to pain suggested he go home, but he tells me he can't due to pain changed diet to low fat due to morbid obesity 10/05 [place] PRN, Flexeril prednisone total 5 days patient refusing to participate with PT/OT plan to d/c home consulted pain management for outpatient regimen 10/04 patient continues to have pain Lumbar spine MRI improved from previous appreciate ortho input - no surgical intervention continued PT/OT possible rehab discharge will use [place] PRN for pain, Flexeril for muscle spasm prednisone x5 days Asthma continue home inhalers Depression continue home medications; controlled Morbid Obesity patient with BMI >40 counseled on weight loss; patient states he is working on it on his own DVT ppx Lovenox FULL CODE
[2017-10-06 15:12] VITALS: BP 125/75; PULSE 93; TEMP 36.8; O2SAT 93
[2017-10-06] MEDS: MONTELUKAST SOD 10 MG TAB PO SCH (20:56)
[2017-10-06 22:52] VITALS: BP 123/77; PULSE 95; TEMP 37.2; O2SAT 94
[2017-10-07 00:10] VITALS: O2SAT 94
[2017-10-07] MEDS: HYDROCODONE/ACETAMINOPHEN 7.5/325MG TAB PO PRN ×3 (01:14→17:52)
[2017-10-07] MEDS: VORTIOXETINE HBR 10 MG TAB PO SCH (09:00)
[2017-10-07] MEDS: SALMET INH SCH (09:44)
[2017-10-07] MEDS: FLUTIC INH SCH (09:44)
[2017-10-07] MEDS: GABAPENTIN 300 MG CAP PO SCH ×2 (09:45→14:08)
[2017-10-07] MEDS: LORATADINE 10 MG TAB PO SCH (09:45)
[2017-10-07] MEDS: MELOXICAM 7.5 MG TAB PO SCH (09:45)
[2017-10-07] MEDS: TIOTROPIUM BROMIDE 5 PUFF/90 MCG INH INH SCH (09:45)
[2017-10-07] MEDS: LIDODERM (LIDOCAINE) PATCH 5% TD SCH (09:45)
[2017-10-07] MEDS: BACLOFEN 10 MG TAB PO SCH ×2 (09:46→14:08)
[2017-10-07] MEDS: ENOXAPARIN 40 MG/0.4 ML SYR SQ SCH (09:48)
--- NOTE | 2017-10-07 14:51 | Progress Note ---
Subjective Date of Service: Oct 07, 2017. Subjective Pt evaluation today including: conversation w/ patient, physical exam, lab review, review of studies, review of inpatient medication list Saw/examined the patient in room 360 He feels much better pain resolved able to walk does not want to go to nursing facility or rehab; okay to go home Review of Systems Musculoskeletal: No joint pain (resolved) Medications Current Inpatient Medications Medications (Trade) Dose Ordered Sig/Mahin Route Start Time Stop Time Status Last Admin Dose Admin Enoxaparin Sodium (Lovenox Inj) 40 mg Q24H SQ 10/04/17 09:00 11/03/17 08:59 10/07/17 09:48 40 MG Acetaminophen (Tylenol Tab) 650 mg Q4H PRN PO 10/03/17 14:30 11/02/17 14:29 Ondansetron HCl (Zofran Inj) 4 mg Q6H PRN IV 10/03/17 14:30 11/02/17 14:29 Bupropion HCl (Wellbutrin Tab) 150 mg BID PO 10/03/17 21:00 11/02/17 20:59 10/07/17 09:47 150 MG Loratadine (Claritin Tab) 10 mg DAILY PO 10/04/17 09:00 11/03/17 08:59 10/07/17 09:45 10 MG Montelukast Sodium (Singulair Tab) 10 mg HS PO 10/03/17 21:00 11/02/17 20:59 10/06/17 20:56 10 MG Tiotropium [place] (Spiriva Handihaler Inhaler) 1 puff DAILY INH 10/04/17 09:00 11/03/17 08:59 10/07/17 09:45 1 PUFF Miscellaneous (Iv Fluids Completed) 1 ea PRN PRN N/A 10/03/17 16:30 10/03/18 16:29 Salmeterol Xinafoate/ Fluticasone (Advair Hfa 230/ 21 Inh) 2 puff BID INH 10/04/17 09:00 11/03/17 08:59 10/07/17 09:44 2 PUFF Acetaminophen/ Hydrocodone Bitart (Spr[place] 7.5/325 Tab) 1 tab Q6 PRN PO 10/04/17 13:45 10/17/17 15:14 10/07/17 09:50 1 TAB Vortioxetine (Trintellix) 10 mg DAILY PO 10/06/17 09:00 11/05/17 08:59 10/07/17 09:00 10 MG Meloxicam (Mobic Tab) 7.5 mg BID PO 10/06/17 09:00 11/05/17 08:59 10/07/17 09:45 7.5 MG Lidocaine (Lidoderm Patch 5%) 1 patch QAM TD 10/06/17 09:00 11/05/17 08:59 10/07/17 09:45 1 PATCH Miscellaneous (Remove Lidoderm Patch) 1 ea DAILY@21 N/A 10/06/17 21:00 11/05/17 20:59 10/06/17 20:55 1 EA Baclofen (Lioresal Tab) 10 mg TID PO 10/06/17 09:00 11/05/17 08:59 10/07/17 14:08 10 MG Gabapentin (Neurontin Cap) 300 mg TID PO 10/06/17 09:00 11/05/17 08:59 10/07/17 14:08 300 MG Objective Vital Signs Date Time Temp Pulse Resp B/P (MAP) Pulse Ox O2 Delivery O2 Flow Rate FiO2 10/07/17 07:45 Room Air 10/07/17 00:10 94 Room Air 10/06/17 22:52 37.2 95 20 123/77 (92) 94 Room Air 10/06/17 16:00 Room Air 10/06/17 15:12 36.8 93 18 125/75 (92) 93 Room Air Physical Exam General Appearance: + obese Respiratory/Chest: no respiratory distress, no accessory muscle use Extremities: normal inspection, no pedal edema Assessment and Plan This is a 32 year old male with a PMH of asthma, depression - presents with lower back pain Lower Back Pain L5-S1 Protrusion Muscle Spasm 10/07 he's doing much better today can d/c home with gabapentin, baclofen and Spray combination 10/06 appreciate pain management input will give gabapentin 300mg TID, Baclofen for muscle spasms Spray PRN for pain, Meloxicam and Lidoderm patch added no new updates; stable for discharge; home vs. rehab - he is refusing to work with PT/OT due to pain suggested he go home, but he tells me he can't due to pain changed diet to low fat due to morbid obesity 10/05 Spray PRN, Flexeril prednisone total 5 days patient refusing to participate with PT/OT plan to d/c home consulted pain management for outpatient regimen 10/04 patient continues to have pain Lumbar spine MRI improved from previous appreciate ortho input - no surgical intervention continued PT/OT possible rehab discharge will use Spray PRN for pain, Flexeril for muscle spasm prednisone x5 days Asthma continue home inhalers Depression continue home medications; controlled Morbid Obesity patient with BMI >40 counseled on weight loss; patient states he is working on it on his own DVT ppx Lovenox FULL CODE
[2017-10-07] MEDS ORDERED: HYDR-3983 PO (14:55)
[2017-10-07] MEDS ORDERED: ACET-1047 PO (14:55)
[2017-10-07] MEDS ORDERED: LRS10 PO (14:55)
[2017-10-07] MEDS ORDERED: NRN300 PO (14:55)
--- NOTE | 2017-10-07 15:03 | Discharge Instructions ---
Discharge Instructions Date of Service Oct 07, 2017. Admission Reason for Admission: Back Pain Discharge Discharge Diagnosis / Problem: Low Back Pain, Muscle Spasm Discharge Goals Goal(s): Decrease discomfort, Improve function, Diagnostic testing, Therapeutic intervention Activity Recommendations Activity Limitations: per Instructions/Follow-up section . Instructions / Follow-Up Instructions / Follow-Up Please follow-up with Dr. Parson on October 11 at 11:05AM * You will be prescribed Mcintosh - please do not drive while taking this medication and only take this medication as needed * You will be given Baclofen and gabapentin - take these for muscle spasms * Please follow-up with primary care and possibly an outpatient affirmative action specialist regarding weight loss Current Hospital Diet Patient's current hospital diet: Low Fat Diet Discharge Diet Recommended Diet: Regular Diet Pending Studies Studies pending at discharge: no Medical Emergencies . Who to Call and When: Medical Emergencies: If at any time you feel your situation is an emergency, please call 911 immediately. . Non-Emergent Contact Non-Emergency issues call your: Primary Care Provider . . "Provider Documentation" section prepared by Renetta Gutierrez. . VTE Core Measure Inpt VTE Proph given/why not?: Enoxaparin (Lovenox) [place] Drug Monitoring Program Search Results: patient reviewed within database, no issues identified
--- NOTE | 2017-10-07 15:05 | Discharge Summary ---
Discharge Summary Date of Service Oct 07, 2017. Discharge Summary Admission Date: Oct 03, 2017 at 14:32 Discharge Date: Oct 07, 2017 Discharge Disposition: Home Principal Diagnosis: Low Back Pain Sacral Muscle Spasms Medication Reconciliation New Medications: Acetaminophen (Mapap) 325 Mg Tab 650 MG PO Q6 PRN for Pain or Fever for 5 Days, #40 TAB Baclofen (Baclofen) 10 Mg Tab 10 MG PO TID for 5 Days, #15 TAB Gabapentin (Gabapentin) 300 Mg Cap 300 MG PO TID for 15 Days, #45 CAP Hydrocodone/Acetaminophen 7.5MG/325MG (Dickens 7.5MG/325MG) Tab 1 TAB PO Q6 PRN for severe pain for 5 Days, #20 TAB PRN PAIN Continued Medications: Albuterol Hfa (Ventolin Hfa) 200 Puffs/04910 Mcg Aers 2-4 PUFFS INH Q6H PRN for SOB/Wheezing, #1 INHALER Bupropion (Wellbutrin) 75 Mg Tab 150 MG PO BID, TAB Cyclobenzaprine Hcl (Flexeril) 10 Mg Tab 1 TAB PO TID PRN for Muscle Spasms for 30 Days, #90 TAB Fluticasone-Salmeterol 230/21 Mcg (Advair Hfa 230/21 Mcg) 1 Aer Aer 2 PUFFS INH BID, AER Loratadine (Claritin) 10 Mg Tab 10 MG PO DAILY Lorazepam (Lorazepam) 0.5 Mg Tab 0.5 MG PO TID PRN for Anxiety Montelukast Sodium (Singulair) 10 Mg Tab 10 MG PO HS, TAB Naproxen (Naproxen) 500 Mg Tab 1 TAB PO BID PRN for Pain for 30 Days, #60 TAB 1 Refill Tiotropium [place] (Spiriva Handihaler) 30 Puff/540 Mcg Aerp 1 CAP INH DAILY for 30 Days, #30 CAP 3 Refills Vortioxetine HBr (Trintellix) 10 Mg Tab 10 MG PO DAILY Admission Information HPI (per Admitting provider): 32 year old male who presents to the ED with back pain. Patient reports he had a herniated disc about 5 years ago. He reports that since that time his back pain will flare up occasionally. He will take Flexeril and Percocet, leftover from his injury 5 years ago. Yesterday while standing from the toilet he felt a pulling in his low back and developed sudden onset of low back pain. He was able to talk back to bed to lay down. He reports pain with minimal movement. Pain slightly favors the left side. He is able to walk however he reports that due to the pain he is very rigid making it hard for him to walk and that his legs "will give out". He denies loss of bowel and bladder function. No radiation of the pain into the legs. He reports flu like symptoms for the past few weeks with generalized fatigue, cough, and episodes of nausea and vomiting. He feels like these symptoms are improving. No chest pain or shortness of breath. He denies lightheadedness, dizziness, diaphoresis, and syncopal events. In the ED, patient had a lumbar spine MRI that shows a small disc protrusion but no acute findings. Physical Exam (per Admitting): General Appearance: WD/WN, no apparent distress Head: normocephalic, atraumatic Eyes: normal inspection, EOMI, sclerae normal ENT: hearing grossly normal, + pertinent finding (mucous membranes moist) Neck: supple, no JVD, trachea midline Respiratory/Chest: lungs clear, normal breath sounds, no respiratory distress Cardiovascular: regular rate, rhythm, no edema, normal peripheral pulses Abdomen/GI: normal bowel sounds, non tender, soft, no organomegaly Back: + pertinent finding (pain with palpation of lumbar spine) Extremities/Musculoskelatal: normal inspection, no calf tenderness, normal capillary refill Neurologic/Psych: no motor/sensory deficits, alert, normal mood/affect, oriented x 3 Skin: normal color, warm/dry Hospital Course This is a 32 year old male with a PMH of asthma, depression - presents with lower back pain Lower Back Pain L5-S1 Protrusion Muscle Spasm 10/07 he's doing much better today can d/c home with gabapentin, baclofen and Dickens combination 10/06 appreciate pain management input will give gabapentin 300mg TID, Baclofen for muscle spasms [place] PRN for pain, Meloxicam and Lidoderm patch added no new updates; stable for discharge; home vs. rehab - he is refusing to work with PT/OT due to pain suggested he go home, but he tells me he can't due to pain changed diet to low fat due to morbid obesity 10/05 Dickens PRN, Flexeril prednisone total 5 days patient refusing to participate with PT/OT plan to d/c home consulted pain management for outpatient regimen 10/04 patient continues to have pain Lumbar spine MRI improved from previous appreciate ortho input - no surgical intervention continued PT/OT possible rehab discharge will use Dickens PRN for pain, Flexeril for muscle spasm prednisone x5 days Asthma continue home inhalers Depression continue home medications; controlled Morbid Obesity patient with BMI >40 counseled on weight loss; patient states he is working on it on his own DVT ppx Lovenox FULL CODE Total time spent on discharge = 20 minutes This includes examination of the patient, discharge planning, medication reconciliation, and communication with other providers. Discharge Instructions Please follow-up with Dr. Parson on October 11 at 11:05AM * You will be prescribed Dickens - please do not drive while taking this medication and only take this medication as needed * You will be given Baclofen and gabapentin - take these for muscle spasms * Please follow-up with primary care and possibly an outpatient belting and webbing inspector regarding weight loss
[2017-10-07 15:17] VITALS: BP 134/76; PULSE 95; TEMP 37.1; O2SAT 97
[2017-10-07 17:26] VITALS: BP 134/76; PULSE 95; TEMP 37.1; O2SAT 97
== END 2017-10-07 18:55 | disposition home or self-care (01) ==
LOC: EDBD 08:57 → C.EDB 08:58 → C.MSW 14:32 → SUPCPDRO 14:33 → ENRESERV 15:48
PROVIDERS: ADMIT Internal Medicine; ATTEND Family Medicine
DX: M54.5 Low back pain (principal); M62.830 Muscle spasm of back; E78.5 Hyperlipidemia, unspecified; J45.909 Unspecified asthma, uncomplicated; F32.9 Major depressive disorder, single episode, unspecified; Z90.49 Acquired absence of other specified parts of digestive tract; E66.9 Obesity, unspecified; Z68.41 Body mass index [BMI] 40.0-44.9, adult

== ENCOUNTER 2024-12-21 07:15 | Observation (INO) ==
--- NOTE | 2024-12-21 07:38 | Emergency Department Note ---
History of Present Illness General Chief complaint: Back Injury/Pain Stated complaint: BACK INJURY Time Seen by Provider: 12/21/24 07:17 History of Present Illness Maximum Pain Intensity: 8 This is a 39-year-old male that presents to the emergency department via EMS with complaints of "low back pain". Patient notes history of similar occurring intermittently over the past several years. No trauma or injury recently. The patient states that normally he is able to manage the pain with baclofen/similar and the pain will lo on its own. However the patient notes that this past evening around 8 PM he was ambulating and developed low back pain. It has progressively worsened since that time to a point where he notes that he could not move without severe pain therefore EMS was summoned. Patient is that he had to be extracted from the second floor of his home by EMS. The patient notes the pain is in the low back and radiates down the legs intermittently. Patient notes this feels identical to previous exacerbations of his low back pain. Reportedly the patient received 100 mcg of fentanyl and route +4 mg of Zofran. This did help his pain but he felt some nausea he notes with the medication. I will note that there is a listed allergy in the EMR however the patient does not seem to show any signs of allergic reaction to this medication. 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 Per review of the EMR patient was seen on 10/03/2017 for low back pain. Patient at that time underwent MRI of the L-spine which showed no acute abnormality within the lumbar spine. Small central disc protrusion L5-S1 and small left paracentral disc protrusion at L4-L5 which has decreased in size since the June 28, 2012 examination. There was comment of patent central canal and neural foramina. Minimal lateral recess narrowing at L4-L5 and L5-S1. Patient ultimately on that visit was admitted noting ongoing discomfort and severe pain with walking. Patient was then seen by orthopedic ep specialist the following day on 10/04/2017. Plan at that time was pain control measures in conjunction with physical therapy. No acute surgical indication at that time. Home Medications Medication Instructions Recorded Confirmed Type loratadine 10 mg tablet (Claritin) 10 mg PO HS 07/23/21 12/21/24 History montelukast 10 mg tablet 10 mg PO HS 07/23/21 12/21/24 History (Singulair) fluticasone fur. 200 mcg-umeclid 1 inh inhalation DAILY 12/21/24 12/21/24 History 62.5 mcg-vilant 25 mcg inhalat.powder (Trelegy Ellipta) guaifenesin 600 mg tablet, 600 mg PO Q12H 12/21/24 12/21/24 History extended release 12 hr Allergies Allergy/AdvReac Type Severity Reaction Status Date / Time fentanyl Allergy Intermediate SHORTNESS Verified 12/21/24 08:16 OF BREATH Penicillins Allergy Unknown Verified 12/21/24 08:16 Past Med/Surg History Problem List (Updated 12/21/24 @ 13:30 by Clara Clifford PA-C) Elevated random blood glucose level Ambulatory dysfunction Discogenic low back pain Lumbar radiculopathy (Acute) Asthma exacerbation (Acute) Back pain Medical History Dyslipidemia (06/28/12) Asthma (06/28/12) Anxiety disorder (06/28/12) Allergic rhinitis (06/28/12) Surgical History No history of previous surgery Family History (Updated 12/21/24 @ 13:23 by Clara Clifford PA-C) Other Diabetes Social History (Updated 12/21/24 @ 13:22 by Clara Clifford PA-C) Smoking Status: Never smoker Hx Alcohol Use: No Hx Substance Use: No Preferred Language: Togolese Current Living Situation: Alone Feels Safe at Home: Yes Review of Systems A total of 10 systems reviewed and were otherwise negative Physical Exam Vital Signs Vital Signs - 24 hr 12/21/24 07:22 12/21/24 07:31 12/21/24 09:08 Temperature 36.8 C Temperature Source Oral Pulse Rate 93 H Pulse Rate [Left Finger] 78 Respiratory Rate 18 15 Respiratory Effort / Characteristics Non-Labored Spontaneous Non-Labored Spontaneous Respiratory Depth Normal Normal Respiratory Pattern Regular Regular Blood Pressure 141/92 H Blood Pressure [Left Arm] 136/80 Blood Pressure Mean 108 Blood Pressure Mean [Left Arm] 98 Pulse Oximetry 96 96 94 Oxygen Delivery Method Room Air Room Air Room Air Sepsis Recent Fever Within 48 Hours No Sepsis New/Unexplained Change in Mental Status N/A Sepsis Action Taken by Nursing No Action Required 12/21/24 11:00 Temperature Temperature Source Pulse Rate Pulse Rate [Left Finger] 80 Respiratory Rate 17 Respiratory Effort / Characteristics Non-Labored Spontaneous Respiratory Depth Normal Respiratory Pattern Regular Blood Pressure Blood Pressure [Left Arm] 127/89 Blood Pressure Mean Blood Pressure Mean [Left Arm] 101 Pulse Oximetry 92 Oxygen Delivery Method Room Air Sepsis Recent Fever Within 48 Hours Sepsis New/Unexplained Change in Mental Status Sepsis Action Taken by Nursing VITAL SIGNS - Vital signs and nursing notes were reviewed. Hypertensive, otherwise stable and afebrile. GENERAL -39-year-old male appearing his stated age who is in no acute distress. Patient is resting in a prone position on the examination bed. Communicates well with provider and answers questions appropriately. SKIN - Without rashes. No meningeal or petechial rash. HEAD - NC/AT. EYES - PERRL with EOMI bilaterally. Sclera anicteric. EARS - No deformities of external structures noted on gross examination bilaterally. NOSE - Midline and without cyanosis. No epistaxis or purulent drainage noted. MOUTH/OROPHARYNX - Without perioral cyanosis. NECK - Neck with FROM. No nuchal rigidity. LUNGS - Chest wall symmetric without accessory muscle use, intercostals retractions, or central cyanosis. Normal vesicular breath sounds CTA B/L. No wheezes, rales, or rhonchi appreciated. CARDIAC - RRR MSKthere is tenderness to palpation overlying the L-spine spinous processes and paraspinous musculature of the L-spine ABDOMEN - Abdominal contour normal without pulsations or visible masses. BS normoactive all four quadrants. No tenderness, palpable masses, hepatosplenomegaly, or ascites noted. EXTREMITIES - No clubbing or peripheral cyanosis. +5/5 strength noted in UE/LE bilaterally. Achilles reflexes within normal limits. NEUROLOGIC - Cranial nerves II through XII grossly intact. Sensory intact to light touch throughout. PSYCH -alert, oriented and pleasant on examination Course Administered Medications Discontinued Medications Acetaminophen (Acetaminophen 325 Mg Tab) 650 mg PO NOW STA Stop: 12/21/24 07:32 Last Admin: 12/21/24 07:45 Dose: 650 mg Documented By: KMO Dexamethasone Sodium Phosphate (DexamethasonePf 10 Mg/Ml Vial) 10 mg IV NOW ONE Stop: 12/21/24 08:45 Last Admin: 12/21/24 08:48 Dose: 10 mg Documented By: BREN Hydromorphone HCl (Hydromorphone Inj 0.5 Mg/0.5 Ml Syr) 0.5 mg IV NOW STA Stop: 12/21/24 08:45 Last Admin: 12/21/24 08:47 Dose: 0.5 mg Documented By: BREN Ibuprofen (Ibuprofen 600 Mg Tab) 600 mg PO NOW STA Stop: 12/21/24 13:11 Last Admin: 12/21/24 13:43 Dose: 600 mg Documented By: BREN Ketorolac Tromethamine (Ketorolac Tromethamine 15 Mg/Ml Vial) 10 mg IV NOW ONE Stop: 12/21/24 07:32 Last Admin: 12/21/24 07:46 Dose: 10 mg Documented By: BREN Lidocaine (Lidocaine 5% 1 Patch) 1 patch TD NOW STA Stop: 12/21/24 07:32 Last Admin: 12/21/24 07:46 Dose: 1 patch Documented By: BREN Medical Decision Making Laboratory Data 12/21/24 07:35 12/21/24 07:35 Lab Results 12/21/24 Range/Units 07:35 WBC 10.04 (4.8-10.8) K/ul RBC 4.71 (4.70-6.10) M/uL Hgb 14.3 (14.0-18.0) g/dl Hct 39.5 L (42.0-52.0) % MCV 83.9 (80.0-100.0) fL MCH 30.4 (25.0-34.0) pg MCHC 36.2 H (32.0-36.0) g/dL RDW Std Deviation 38.3 (36.4-46.3) fL RDW Coeff of Keira 12.6 (11.5-14.5) % Plt Count 249 (130-400) K/uL MPV 9.7 (9.4-12.4) fL Immature Gran % (Auto) 0.4 % Neut % (Auto) 73.9 % Lymph % (Auto) 17.6 % Sharp % (Auto) 6.1 % Eos % (Auto) 1.4 % Baso % (Auto) 0.6 % Neut # (Auto) 7.42 H (1.40-6.50) K/uL Lymph # (Auto) 1.77 (1.20-3.40) K/uL Sharp # (Auto) 0.61 H (0.11-0.59) K/uL Eos # (Auto) 0.14 (0.00-0.50) K/uL Baso # (Auto) 0.06 (0.00-0.20) K/uL Immature Gran # (Auto) 0.04 (0.01-0.20) K/uL Sodium 137 (136-145) mmol/L Potassium 4.1 (3.5-5.1) mmol/L Chloride 105 (98-107) mmol/L Carbon Dioxide 28 (21-32) mmol/L Anion Gap 4 (3-11) BUN 13 (6-23) mg/dl Creatinine 0.85 (0.6-1.4) mg/dl Est Cr Clr Drug Dosing 141.4 ml/min eGFR 111.95 BUN/Creatinine Ratio 15.3 (10-20) Glucose 258 H (70-99(Fasting)) mg/dl Estimat Average Glucose 171 mg/dl Hemoglobin A1c 7.6 H (4.5-5.6) % Calcium 9.3 (8.6-10.3) mg/dl Total Bilirubin 1.3 H (0.2-1.0) mg/dl AST 20 (13-39) U/L ALT 30 (7-52) U/L Alkaline Phosphatase 125 H (34-104) U/L Total Protein 6.6 (6.0-8.3) gm/dl Albumin 3.9 (3.4-5.0) gm/dl Globulin 2.7 (2.5-4.0) gm/dl Albumin/Globulin Ratio 1.4 (0.9-2) Imaging Data Radiologist's Impression: Lumbar Spine MRI 12/21/24 07:30 MR lumbar spine wo con CLINICAL HISTORY: 39 years-old Male with Low back pain, leg weakness. Acute low back pain with radicular symptoms COMPARISON: 10/03/2017 TECHNIQUE: Multiplanar, multi sequence MRI of the lumbar spine was performed without intravenous contrast. FINDINGS: Homogeneously decreased T1 and T2 marrow signal is similar to prior and appears benign. Civil Engineer Helper localizer images demonstrate no gross extraspinal abnormality. Conus medullaris terminates at L1-L2. There is normal signal within the imaged thoracic spinal cord. Tiny sacral Tarlov cysts. There is no acute fracture, subluxation, endplate erosion or marrow replacing process. The imaged intra- abdominal paraspinal structures are unremarkable. Study is mildly motion degraded. T12-L1: No central canal or neural foraminal stenosis. L1-L2: No central canal or neural foraminal stenosis. L2-L3: Mild intervertebral disc space narrowing has progressed from prior. Spondylitic spurring with small posterior annular disc bulge and central annular fissure. No central canal or neural foraminal stenosis. L3-L4: Mild intervertebral disc space narrowing has progressed from prior. Spondylitic spurring with small posterior annular disc bulge and annular fissure. Mild bilateral foraminal narrowing. L4-L5: Progressively worsened moderate intervertebral disc space narrowing with Modic type II endplate degeneration. Spondylitic spurring with circumferential annular disc bulge, central annular fissure and mild facet arthrosis. Mild narrowing of the lateral recesses. Patent central canal. Mild bilateral foraminal narrowing has progressed. L5-S1: Mild to moderate intervertebral disc space narrowing is similar to prior. Spondylitic spurring with circumferential annular disc bulge and mild facet arthrosis. Patent central canal. Mild bilateral foraminal narrowing is similar to slightly progressed. IMPRESSION: 1. Progressively worsening discogenic degeneration compared to the 10/03/2017 study with mild multilevel neural foraminal narrowing. 2. No high-grade central canal or foraminal stenosis. ACT 112: Negative or not required by law. The above report was generated using voice recognition software. It may contain grammatical, syntax or spelling errors. Electronically signed by: Klaus Martinez M.D. 12/21/2024 10:38 AM [facility] Narrative Patient was seen and evaluated as above in room C6. Review was performed of triage nursing notes and vital signs. I did review pertinent previous visits and patient history. After obtaining a thorough history and physical examination the above work up was performed. Patient presents to us today via EMS for evaluation of low back pain. Patient notes this feels identical to previous exacerbations. The patient has already received 100 mcg of fentanyl en route and 4 mg of IV Zofran. The patient is in the prone position on the examination bed but when he attempts to move he notes severe pain sensation grabbing in the low back. It intermittently will radiate down the legs. There is no abdominal pain. Options of care were discussed with the patient. IV access with established. Patient notes he already received IV fentanyl and route and had baclofen prior to EMS arrival. Labs are drawn. The patient still is rating his pain as an 8/10 despite the medicines received and route. I did order the patient oral acetaminophen, IV Toradol, and lidocaine patch. There is no leukocytosis or concerning anemia. No emergent metabolic disturbance. Hyperglycemia to 58. T. bili 1.3. Alk phos 125. Patient was reevaluated at 0842. Pain was improving but still noting intermittent muscle spasms to the area. I did order additional IV analgesia and Decadron noting the intermittent radicular symptoms into the legs from the L- spine. I did call and speak to MRI and patient will be taken to the MRI suite shortly. Patient returned from MRI suite and continues with discomfort with movement but manageable at rest. He still cannot sit up without severe pain. MRI result as above. Progressive worsening of the MR findings noted. I reviewed this with the patient. I discussed discharge versus further evaluation/management in the hospital. The patient notes there is no way he can go home at this time based on his ability to sit up and move without severe pain. Therefore we will discuss this with the hospitalist service. They did recommend discussion with orthospine therefore I did speak with DARIAN Head at 12:39 PM. We agreed with pain control, PT/OT evaluation and they will evaluate the patient during his hospitalization. I do believe the patient benefit from hospitalization as the patient continues to note that he cannot go home in his current state of pain when he attempts to move. I will note that he is neurovascularly intact without evidence of cauda equina syndrome. I therefore discussed the patient's continued pain again with the hospitalist service please refer to further documentation regarding his stay. GCS: 15 In the evaluation and treatment of this patient the following differential diagnosis entertained: Fracture, dislocation, subluxation, cauda equina syndrome, AAA, diverticulitis, appendicitis, torsion, osteomyelitis, piriformis syndrome, strain, sprain, among others. Impression & Plan Lumbar radiculopathy Discharge Plan Visit Data Chief Complaint: Back Injury/Pain Stated Complaint: BACK INJURY ED Provider: Anthony Steele ED Midlevel Provider: Jered Rodriguez Discharge Problem: Lumbar radiculopathy Patient Disposition: Admitted As Inpatient Discharge Instructions Interventions: ED Discharge Assessment Last Done: 12/21/24 14:53
[2024-12-21] MEDS: ACETAMINOPHEN 325 MG TAB PO STA (07:45)
[2024-12-21] MEDS: KETOROLAC TROMETHAMINE 15 MG/ML VIAL IV ONE (07:46)
[2024-12-21] MEDS: LIDOCAINE 5% 1 PATCH TD STA (07:46)
[2024-12-21 07:56] LABS: Basophils # (auto) 0.06 K/uL (0.00-0.20); Basophils % (auto) 0.6 %; Eosinophils # (auto) 0.14 K/uL (0.00-0.50); Eosinophils % (auto) 1.4 %; Hematocrit (blood only) 39.5 % (42.0-52.0); Hemoglobin 14.3 g/dl (14.0-18.0); Immature Granulocytes # (auto) 0.04 K/uL (0.01-0.20); Immature Granulocytes % (auto) 0.4 %; Lymphocytes # (auto) 1.77 K/uL (1.20-3.40); Lymphocytes % (auto) 17.6 %; Mean Corpuscular Hemoglobin 30.4 pg (25.0-34.0); Mean Corpuscular Hgb Conc 36.2 g/dL (32.0-36.0); Mean Corpuscular Volume 83.9 fL (80.0-100.0); Mean Platelet Volume 9.7 fL (9.4-12.4); Monocytes # (auto) 0.61 K/uL (0.11-0.59); Monocytes % (auto) 6.1 %; Neutrophils # (auto) 7.42 K/uL (1.40-6.50); Neutrophils % (auto) 73.9 %; Platelet Count 249 K/uL (130-400); RDW Coefficient of Variation 12.6 % (11.5-14.5); RDW Standard Deviation 38.3 fL (36.4-46.3); Red Blood Count 4.71 M/uL (4.70-6.10); White Blood Count 10.04 K/ul (4.8-10.8)
[2024-12-21 08:07] LABS: Albumin Globulin Ratio 1.4 (0.9-2); Albumin Level 3.9 gm/dl (3.4-5.0); BUN Creatinine Ratio 15.3 (10-20); Bilirubin,Total 1.3 mg/dl (0.2-1.0); Calcium 9.3 mg/dl (8.6-10.3); Creatinine Clr Calc Pharmacy 141.4 ml/min; Globulin 2.7 gm/dl (2.5-4.0); Potassium 4.1 mmol/L (3.5-5.1); Total Protein 6.6 gm/dl (6.0-8.3)
[2024-12-21] MEDS: HYDROmorphone INJ 0.5 MG/0.5 ML SYR IV STA (08:47)
[2024-12-21] MEDS: dexAMETHasone**PF** 10 MG/ML VIAL IV ONE (08:48)
--- NOTE | 2024-12-21 10:40 | Magnetic Resonance Report ---
MR lumbar spine wo con CLINICAL HISTORY: 39 years-old Male with Low back pain, leg weakness. Acute low back pain with radic ular symptoms COMPARISON: 10/03/2017 TECHNIQUE: Multiplanar, multi sequence MRI of the lumbar spine was performed without intravenous cont rast. FINDINGS: Homogeneously decreased T1 and T2 marrow signal is similar to prior and appears benign. Escrow Secretary localiz er images demonstrate no gross extraspinal abnormality. Conus medullaris terminates at L1-L2. There i s normal signal within the imaged thoracic spinal cord. Tiny sacral Tarlov cysts. There is no acute f racture, subluxation, endplate erosion or marrow replacing process. The imaged intra-abdominal parasp inal structures are unremarkable. Study is mildly motion degraded. T12-L1: No central canal or neural foraminal stenosis. L1-L2: No central canal or neural foraminal stenosis. L2-L3: Mild intervertebral disc space narrowing has progressed from prior. Spondylitic spurring with small posterior annular disc bulge and central annular fissure. No central canal or neural foraminal stenosis. L3-L4: Mild intervertebral disc space narrowing has progressed from prior. Spondylitic spurring with small posterior annular disc bulge and annular fissure. Mild bilateral foraminal narrowing. L4-L5: Progressively worsened moderate intervertebral disc space narrowing with Modic type II endpla te degeneration. Spondylitic spurring with circumferential annular disc bulge, central annular fissur e and mild facet arthrosis. Mild narrowing of the lateral recesses. Patent central canal. Mild bilate ral foraminal narrowing has progressed. L5-S1: Mild to moderate intervertebral disc space narrowing is similar to prior. Spondylitic spurrin g with circumferential annular disc bulge and mild facet arthrosis. Patent central canal. Mild bilate ral foraminal narrowing is similar to slightly progressed. IMPRESSION: 1. Progressively worsening discogenic degeneration compared to the 10/03/2017 study with mild multilev el neural foraminal narrowing. 2. No high-grade central canal or foraminal stenosis. ACT 112: Negative or not required by law. The above report was generated using voice recognition software. It may contain grammatical, syntax o r spelling errors. Electronically signed by: Klaus Martinez M.D. 12/21/2024 10:38 AM
--- NOTE | 2024-12-21 13:11 | History & Physical Report ---
Date of Service December 21, 2024 Assessment & Plan (1) Discogenic low back pain: (2) Ambulatory dysfunction: (3) Elevated random blood glucose level: Plan This is a 39 yr old M who has a significant PMH of moderate persistent asthma, morbid obesity, hypertriglyceridemia, IBS, Lumbar DDD and depression with anxiety who presents to ED 2/2 low back pain. --Lumbar Spine MRI: IMPRESSION: 1. Progressively worsening discogenic degeneration compared to the 10/03/2017 study with mild multilevel neural foraminal narrowing.2. No high-grade central canal or foraminal stenosis. #Discogenic low back pain #ambulatory dysfunction admit to medical pt feels he is unable to manage pain at home Scheduled Tylenol and ibuprofen alternating schedule baclofen 10mg TID consult pain management for possible TPI ( pt received epidural through Dr. Cuello in Oct with good results) Consult ortho spine PT/OT #Elevated random glucose #T2Dm 258, also elevated in random testing at [facility] recently A1C orderd and 7.6 place on diabetic diet, ISS, consult family educator Pt would benefit from starting Metformin 500mg at discharge with uptitration, close PCP follow up, frontend engineer and weight loss Pt will need further education once pain is more controlled #Hypertriglyceridemia: encourage diet/lifestyle modifications, on 10/24 Trig 325, defer tx to PCP #Morbid obesity: A1C 43.7, encourage diet/lifestyle mod as it would likely help out MSK issues as well DVT ppx: Encourage ambulation FULL CODE PCP: Charlotte Horton Dispo: admit to medical Pt was seen and examined in collaboration with Dr. Delgado, please see addendum I spent a total of 60 minutes coordinating, documenting and providing care for this patient excluding time spent in the performance of separately billed services or time spent by another provider/QHP. History of Present Illness Chief Complaint: Back pain x 1 day. Primary Care Provider: Charlotte Horton, This is a 39 yr old M who has a significant PMH of moderate persistent asthma, morbid obesity, hypertriglyceridemia, IBS, Lumbar DDD and depression with anxiety who presents to ED 2/2 low back pain. Hx obtained from ED provider, pt and external records. Pt has hx of chronic low back pain. His was last hospitalized in 2017 for similar sx. He follows with [facility] and last received a Corticosteroid injection in 10/2023 that went well per pt. He states last night around 8p.m. his back just, "went out." He was in the process of going upstairs and thankfully he made it upstairs before the, "muscle spasm," hit. The pain was so severe he was unable to get out of bed this morning and EMS was summoned. He states firefighters had to carry him down the stairs. He states pain is in his bilateral lower back, but denies any radicular sx or bowel/bladder incontinence/anesthesia at this time. At home he was trying baclofen with mild relief. In the past he was on gabapentin, ibuprofen and baclofen which worked well. He feels he is unable to be discharged home and manage his sx at home due to being unable to walk. In ED pt was hemodynamically stable. His labwork was unremarkable except for bsg at 258. He denies prior hx of T2DM, but states he drinks 4-5 pepsi drinks daily. He underwent MRI P rogressively worsening discogenic degeneration compared to the 10/03/2017 study with mild multilevel neural foraminal narrowing. 2. No high-grade central canal or foraminal stenosis. He is being admitted for pain control. Allergies Allergy/AdvReac Type Severity Reaction Status Date / Time fentanyl Allergy Intermediate SHORTNESS Verified 12/21/24 08:16 OF BREATH Penicillins Allergy Unknown Verified 12/21/24 08:16 Home Medications Medication Instructions Recorded Confirmed Type loratadine 10 mg tablet (Claritin) 10 mg PO HS 07/23/21 12/21/24 History montelukast 10 mg tablet 10 mg PO HS 07/23/21 12/21/24 History (Singulair) fluticasone fur. 200 mcg-umeclid 1 inh inhalation DAILY 12/21/24 12/21/24 History 62.5 mcg-vilant 25 mcg inhalat.powder (Trelegy Ellipta) guaifenesin 600 mg tablet, 600 mg PO Q12H 12/21/24 12/21/24 History extended release 12 hr Past Med/Surg History Problem List (Updated 12/21/24 @ 13:30 by Clara Clifford PA-C) Elevated random blood glucose level Ambulatory dysfunction Discogenic low back pain Lumbar radiculopathy (Acute) Asthma exacerbation (Acute) Back pain Medical History Dyslipidemia (06/28/12) Asthma (06/28/12) Anxiety disorder (06/28/12) Allergic rhinitis (06/28/12) Surgical History No history of previous surgery Family History (Updated 12/21/24 @ 13:23 by Clara Clifford PA-C) Other Diabetes Social History (Updated 12/21/24 @ 13:22 by Clara Clifford PA-C) Smoking Status: Never smoker Hx Alcohol Use: No Hx Substance Use: No Preferred Language: Malay Communication Ability: Effective Director Drug Safety Required: No Beliefs That Will Affect Care: None Current Living Situation: Spouse Other Information That Helps Us Care for You: No Feels Safe at Home: Yes Safety Concerns: Feels Safe At This Time Assistive Devices: Cane and Glasses Review of Systems Review of Systems: All systems reviewed & are unremarkable except as noted in HPI & below Physical Exam Physical Exam: Gen: WD/WN, M, lying prone in ED, NAD, A&O x3 HEENT: Normocephalic, atraumatic, conjunctivae moist, sclerae anicteric, mucous membranes moist. Lung: Clear to Auscultation bilaterally, no wheezes/rales/rhonchi Heart: RRR Extremities: No edema, pt requested I did not examine/push his back due to pain and he requested I not perform exam Skin: Warm, no rash, negative turgor. Results & Data Results & Data Vital Signs (Past 12 Hours) Vital Signs Temp Pulse Pulse Resp BP BP Pulse Ox 12/21/24 11:00 80 17 127/89 92 12/21/24 09:08 78 15 136/80 94 12/21/24 07:31 96 12/21/24 07:22 36.8 C 93 H 18 141/92 H 96 O2 Del Method 12/21/24 11:00 Room Air 12/21/24 09:08 Room Air 12/21/24 07:31 Room Air 12/21/24 07:22 Room Air Laboratory Results I have independently reviewed and interpreted patient's admitting labs including CBC, CMP. Diagnostic Findings Lumbar Spine MRI 12/21/24 07:30 MR lumbar spine wo con CLINICAL HISTORY: 39 years-old Male with Low back pain, leg weakness. Acute low back pain with radicular symptoms COMPARISON: 10/03/2017 TECHNIQUE: Multiplanar, multi sequence MRI of the lumbar spine was performed without intravenous contrast. FINDINGS: Homogeneously decreased T1 and T2 marrow signal is similar to prior and appears benign. Ironworker localizer images demonstrate no gross extraspinal abnormality. Conus medullaris terminates at L1-L2. There is normal signal within the imaged thoracic spinal cord. Tiny sacral Tarlov cysts. There is no acute fracture, subluxation, endplate erosion or marrow replacing process. The imaged intra- abdominal paraspinal structures are unremarkable. Study is mildly motion degraded. T12-L1: No central canal or neural foraminal stenosis. L1-L2: No central canal or neural foraminal stenosis. L2-L3: Mild intervertebral disc space narrowing has progressed from prior. Spondylitic spurring with small posterior annular disc bulge and central annular fissure. No central canal or neural foraminal stenosis. L3-L4: Mild intervertebral disc space narrowing has progressed from prior. Spo ndylitic spurring with small posterior annular disc bulge and annular fissure. Mild bilateral foraminal narrowing. L4-L5: Progressively worsened moderate intervertebral disc space narrowing with Modic type II endplate degeneration. Spondylitic spurring with circumferential annular disc bulge, central annular fissure and mild facet arthrosis. Mild narrowing of the lateral recesses. Patent central canal. Mild bilateral foraminal narrowing has progressed. L5-S1: Mild to moderate intervertebral disc space narrowing is similar to prior. Spondylitic spurring with circumferential annular disc bulge and mild facet arthrosis. Patent central canal. Mild bilateral foraminal narrowing is similar to slightly progressed. IMPRESSION: 1. Progressively worsening discogenic degeneration compared to the 10/03/2017 study with mild multilevel neural foraminal narrowing. 2. No high-grade central canal or foraminal stenosis. ACT 112: Negative or not required by law. The above report was generated using voice recognition software. It may contain grammatical, syntax or spelling errors. Electronically signed by: Klaus Martinez M.D. 12/21/2024 10:38 AM Medications Administered Medication List Discontinued Medications Acetaminophen (Acetaminophen 325 Mg Tab) 650 mg PO NOW STA Stop: 12/21/24 07:32 Last Admin: 12/21/24 07:45 Dose: 650 mg Documented By: BREN Dexamethasone Sodium Phosphate (DexamethasonePf 10 Mg/Ml Vial) 10 mg IV NOW ONE Stop: 12/21/24 08:45 Last Admin: 12/21/24 08:48 Dose: 10 mg Documented By: BREN Hydromorphone HCl (Hydromorphone Inj 0.5 Mg/0.5 Ml Syr) 0.5 mg IV NOW STA Stop: 12/21/24 08:45 Last Admin: 12/21/24 08:47 Dose: 0.5 mg Documented By: RBEN Ketorolac Tromethamine (Ketorolac Tromethamine 15 Mg/Ml Vial) 10 mg IV NOW ONE Stop: 12/21/24 07:32 Last Admin: 12/21/24 07:46 Dose: 10 mg Documented By: BREN Lidocaine (Lidocaine 5% 1 Patch) 1 patch TD NOW STA Stop: 12/21/24 07:32 Last Admin: 12/21/24 07:46 Dose: 1 patch Documented By: BREN Code Status & VTE Plan Code Status FULL CODE VTE Prophylaxis Plan VTE Prophylaxis will be ordered: No Reason for no VTE drug order: Treatment not indicated Supervising Physician Co-Signing Physician Notes Pt was seen and examined by myself, Alisson Delgado MD on the day of service. Care was coordinated with Clara Clifford PA-C 39yoM presenting with intractable back pain. No acute distress on exam. Pt asking for back to not be palpated. Pain control, ortho spine consult, PT/OT DMII consider initiating rx on discharge, basal/bolus while hospitalized, pcp followup Otherwise as above. I spent a total [id number] coordinating, documenting, and providing care for this patient excluding time spent in the performance of separately billed services
[2024-12-21] MEDS: IBUPROFEN 600 MG TAB PO STA (13:43)
[2024-12-21 14:25] LABS: Estimated Average Glucose 171 mg/dl; Hemoglobin A1C 7.6 % (4.5-5.6)
[2024-12-21] MEDS ORDERED: ALBUTEROL 0.083% NEBU SOLN 3 ML VIAL NEB PRN (15:09)
[2024-12-21] MEDS ORDERED: POLYETHYLENE (MIRALAX) 17 GM PACK PO PRN (15:09)
[2024-12-21] MEDS ORDERED: ONDANSETRON INJ 2 MG/ML 2 ML VIAL IV PRN (15:09)
[2024-12-21] MEDS ORDERED: CARBOHYDRATES FOR HYPOGLYCEMIA PO PRN (15:39)
[2024-12-21] MEDS ORDERED: DEXTROSE 50% 50 ML SYRINGE IV PRN (15:39)
[2024-12-21] MEDS ORDERED: GLUCAGON FOR INJ 1 MG VIAL SQ PRN (15:39)
[2024-12-21] MEDS ORDERED: GLUCOSE 40% GEL 15 GM TUBE PO PRN (15:39)
[2024-12-21] MEDS ORDERED: GLUCOSE 10 TAB/TUBE PO PRN (15:39)
[2024-12-21] MEDS: BACLOFEN 10 MG TAB PO SCH (16:22)
[2024-12-21] MEDS: LIDOCAINE 5% 1 PATCH TD SCH (16:22)
[2024-12-21] MEDS: guaiFENesin 600 MG TABCR PO SCH (16:23)
[2024-12-21] MEDS: ACETAMINOPHEN 500 MG TAB PO SCH (17:14)
[2024-12-21 17:51] LABS: Appearance Urine Clear (Clear); Bacteria Urine Automated None Seen (None Seen); Bilirubin Urine Negative (Negative); Blood Urine 1+ (Negative); Cast Urine Automated 0-2 /lpf (0-2); Color Urine Yellow; Epithelial Cell Urine Auto 0-2 /hpf (0-2); Glucose Urine UA 3+ (Negative); Ketones Urine 1+ (Negative); Leukocyte Esterase Urine Negative (Negative); Nitrite Urine Negative (Negative); Protein Urine Trace (Negative); RBC Urine Automated 0-2 /hpf (0-2); Specific Gravity Urine 1.015 (1.000-1.030); Urobilinogen Urine Negative (Negative); WBC Urine Automated 0-5 /hpf (0-5)
[2024-12-21] MEDS: INSULIN ASPART PER UNIT CHARGE SC SCH (18:24)
[2024-12-21] MEDS: MONTELUKAST SODIUM 10 MG TABLET PO SCH (20:52)
[2024-12-21] MEDS: LORATADINE 10 MG TAB PO SCH (20:53)
[2024-12-21] MEDS: IBUPROFEN 600 MG TAB PO SCH (20:56)
[2024-12-21] MEDS: LANTUS PER UNIT CHARGE SQ SCH (21:51)
[2024-12-21] MEDS: SODIUM CHLORIDE 0.9% 1,000 ML IV ONE (22:00)
[2024-12-22] MEDS: INSULIN ASPART PER UNIT CHARGE SC SCH (00:13)
[2024-12-22] MEDS: ACETAMINOPHEN 500 MG TAB PO SCH (00:13)
[2024-12-22 07:10] LABS: Basophils # (auto) 0.03 K/uL (0.00-0.20); Basophils % (auto) 0.2 %; Hematocrit (blood only) 40.4 % (42.0-52.0); Hemoglobin 14.5 g/dl (14.0-18.0); Immature Granulocytes # (auto) 0.07 K/uL (0.01-0.20); Immature Granulocytes % (auto) 0.4 %; Lymphocytes # (auto) 1.82 K/uL (1.20-3.40); Lymphocytes % (auto) 11.5 %; Mean Corpuscular Hemoglobin 30.1 pg (25.0-34.0); Mean Corpuscular Hgb Conc 35.9 g/dL (32.0-36.0); Mean Corpuscular Volume 83.8 fL (80.0-100.0); Mean Platelet Volume 9.6 fL (9.4-12.4); Monocytes # (auto) 0.76 K/uL (0.11-0.59); Monocytes % (auto) 4.8 %; Neutrophils % (auto) 83.1 %; Platelet Count 271 K/uL (130-400); RDW Coefficient of Variation 12.8 % (11.5-14.5); RDW Standard Deviation 38.7 fL (36.4-46.3); Red Blood Count 4.82 M/uL (4.70-6.10); White Blood Count 15.88 K/ul (4.8-10.8)
[2024-12-22 07:32] LABS: BUN Creatinine Ratio 19.5 (10-20); Calcium 9.1 mg/dl (8.6-10.3); Creatinine Clr Calc Pharmacy 146.6 ml/min; Potassium 4.2 mmol/L (3.5-5.1)
[2024-12-22] MEDS: FLUTICASONE FUROATE 200MCG 14 PUFFS/INHALER INH SCH (08:47)
[2024-12-22] MEDS: UMECLIDINIUM/VILANTEROL 62.5/25MCG 7 PUFFS/INHALER INH SCH (08:48)
[2024-12-22] MEDS ORDERED: NON-FORMULARY MEDICATION (Fluticasone-Umeclidin-Vilanter [Trelegy Ellipta] 200-62.5-25 mcg INH SCH (09:00)
--- NOTE | 2024-12-22 09:32 | Orthopedic Consultation ---
Date of Service December 22, 2024 Assessment & Plan (1) Discogenic low back pain: - Patient is being consulted today for persistent low back pain. He did report to the emergency department yesterday on 12/22/2024 where he was then admitted for ambulatory dysfunction and assistance with pain control for his lumbar spine. At this time, no urgent orthopedic surgical intervention recommended. He is neurologically intact and has very good strength in the bilateral lower extremities. No significant central or foraminal stenosis noted on lumbar spine and he is having very intermittent and rare radiculopathy symptoms. Would recommend pain control, PT/OT for mobilization and I do agree with hospitalist that pain management involvement is a good idea as he has had positive responses with injections in the past. He may follow-up with outpatient spine if indicated, however I do think that pain management at this time is going to be a good option for him. I did encourage him to reach out with any questions or concerns. (2) Lumbar radiculopathy: History of Present Illness Reason for Consultation: low back pain Requesting Physician: Viktor is a 39-year-old male who is being consulted today for low back pain. He states that over the last few years, he has been dealing with some low back pain. He did have injections with Dr. Cuello about 1 year ago. He states that this made a big difference. He states that this last flareup of his low back began Monday night. He states that he bent about 15 degrees to throw something away and felt his back starting to give out. He states that he did try to take some baclofen at home but it did not help. He then needed to call an ambulance as he was unable to get up due to the pain. He states that he does use anti- inflammatories, baclofen and at times [place] if needed for pain. He uses the opioids about 1-2 times a month if his pain gets really bad. He states that this is fairly rare. He does state that his pain is in his middle lumbar spine. States that it is tender to touch. He does feel that since his admission, it has gotten a little bit better but he does not want to try to move and sit up too much for another day or so. He states that he has very sporadic muscle spasms and some lower extremity radiculopathy at times, but once again this is rare. He denies any bowel or bladder issues. No other questions or concerns today. Attending Physician: Romina Holt MD Viktor is a 39 year old male Allergies Allergy/AdvReac Type Severity Reaction Status Date / Time fentanyl Allergy Intermediate SHORTNESS Verified 12/21/24 08:16 OF BREATH Penicillins Allergy Unknown Verified 12/21/24 08:16 Home Medications Medication Instructions Recorded Confirmed Type loratadine 10 mg tablet (Claritin) 10 mg PO HS 07/23/21 12/21/24 History montelukast 10 mg tablet 10 mg PO HS 07/23/21 12/21/24 History (Singulair) fluticasone fur. 200 mcg-umeclid 1 inh inhalation DAILY 12/21/24 12/21/24 History 62.5 mcg-vilant 25 mcg inhalat.powder (Trelegy Ellipta) guaifenesin 600 mg tablet, 600 mg PO Q12H 12/21/24 12/21/24 History extended release 12 hr Past Med/Surg History Problem List (Updated 12/21/24 @ 13:30 by Clara Clifford PA-C) Elevated random blood glucose level Ambulatory dysfunction Discogenic low back pain Lumbar radiculopathy (Acute) Asthma exacerbation (Acute) Back pain Medical History Dyslipidemia (06/28/12) Asthma (06/28/12) Anxiety disorder (06/28/12) Allergic rhinitis (06/28/12) Surgical History No history of previous surgery Family History (Updated 12/21/24 @ 13:23 by Clara Clifford PA-C) Other Diabetes Social History (Updated 12/21/24 @ 13:22 by Clara Clifford PA-C) Smoking Status: Never smoker Hx Alcohol Use: No Hx Substance Use: No Preferred Language: [place]se Communication Ability: Effective Purchasing Assistant Required: No Beliefs That Will Affect Care: None Current Living Situation: Spouse Other Information That Helps Us Care for You: No Feels Safe at Home: Yes Safety Concerns: Feels Safe At This Time Assistive Devices: Cane and Glasses Review of Systems All systems reviewed & are unremarkable except as noted in HPI & below. Physical Exam General: Alert and oriented. No acute distress. He is lying supine at today's visit. He does not want to sit up and flex his lumbar spine due to pain. He is able to roll over on his own and move his bilateral lower extremities without issue. He is tender to the lower lumbar spine with his lidocaine patches. He has 5 out of 5 strength in all planes of the bilateral lower extremities. Sensation intact without deficits. Constitutional WD/WN, vitals as above Musculoskeletal See above. Skin no rashes, warm and dry Psychiatric A+Ox3, euthymic affect Results & Data Results & Data Laboratory Results Abnormal lab results 12/21/24 12/21/24 12/21/24 Range/Units 07:35 16:23 16:25 WBC (4.8-10.8) K/ul Hct (42.0-52.0) % Neut # (Auto) (1.40-6.50) K/uL [place] # (Auto) (0.11-0.59) K/uL Glucose (70-99(Fasting)) mg/dl POC Glucose 316 H* 298 H (70-99) mg/dl Hemoglobin A1c 7.6 H (4.5-5.6) % Urine Protein (Negative) Urine Glucose (UA) (Negative) Urine Ketones (Negative) Urine Blood (Negative) 12/21/24 12/21/24 12/21/24 Range/Units 17:30 20:17 20:18 WBC (4.8-10.8) K/ul Hct (42.0-52.0) % Neut # (Auto) (1.40-6.50) K/uL [place] # (Auto) (0.11-0.59) K/uL Glucose (70-99(Fasting)) mg/dl POC Glucose 318 H* 325 H* (70-99) mg/dl Hemoglobin A1c (4.5-5.6) % Urine Protein Trace H (Negative) Urine Glucose (UA) 3+ H (Negative) Urine Ketones 1+ H (Negative) Urine Blood 1+ H (Negative) 12/21/24 12/22/24 12/22/24 Range/Units 23:42 06:33 07:19 WBC 15.88 H (4.8-10.8) K/ul Hct 40.4 L (42.0-52.0) % Neut # (Auto) 13.20 H (1.40-6.50) K/uL [place] # (Auto) 0.76 H (0.11-0.59) K/uL Glucose 185 H (70-99(Fasting)) mg/dl POC Glucose 232 H 190 H (70-99) mg/dl Hemoglobin A1c (4.5-5.6) % Urine Protein (Negative) Urine Glucose (UA) (Negative) Urine Ketones (Negative) Urine Blood (Negative) Diagnostic Findings MRI lumbar spine on 12/22/2024: I did personally review this MRI in detail. No significant central or foraminal stenosis noted. Does have some worsening arthritic changes when compared to previous imaging, however the imaging was from 2018. IMPRESSION: 1. Progressively worsening discogenic degeneration compared to the 10/03/2017 study with mild multilevel neural foraminal narrowing. 2. No high-grade central canal or foraminal stenosis. Pt seen and examined, agree with plan. Follow up after DC in office for additional consultation. PG Care Time/CCT Total # of Minutes Spent Total Time Spent with Patient: Total time spent is greater than 50% in coordination of care (as documented) at patient's floor/unit and/or counseling patient: Coding Level of Care Code 84220 IN/OBS CONSULT LVL 3,45M Diagnoses Discogenic low back pain M51.360 Lumbar radiculopathy M54.16
--- NOTE | 2024-12-22 12:37 | Hospitalist Progress Note ---
Date of Service December 22, 2024 Assessment & Plan (1) Discogenic low back pain: (2) Ambulatory dysfunction: (3) Elevated random blood glucose level: Plan 39 yr old M who has a significant PMH of moderate persistent asthma, morbid obesity, hypertriglyceridemia, IBS, Lumbar DDD and depression with anxiety who presents to ED 2/2 low back pain. Lumbar Spine MRI: IMPRESSION: 1. Progressively worsening discogenic degeneration compared to the 10/03/2017 study with mild multilevel neural foraminal narrowing.2. No high-grade central canal or foraminal stenosis. #Discogenic low back pain #ambulatory dysfunction pt felt he is unable to manage pain at home, hence was admitted. Scheduled Tylenol and ibuprofen alternating, c/w pepcid while on NSAIDs schedule baclofen 10mg TID consult pain management for possible TPI ( pt received epidural through Dr. Cuello in Oct with good results) Ortho spine evaled, appreciate recs. PT/OT #Elevated random glucose #T2Dm, new diagnosis 258, also elevated in random testing at [facility] recently A1C orderd and 7.6 place on diabetic diet, ISS, consult airplane pilot crop dusting Pt would benefit from starting Metformin 500mg at discharge with uptitration, close PCP follow up, build and release manager and weight loss Establish w/ diabetic clinic on dc. #Hypertriglyceridemia: encourage diet/lifestyle modifications, on 10/24 Trig 325, defer tx to PCP #Morbid obesity: A1C 7.6, encourage diet/lifestyle mod as it would likely help out MSK issues as well DVT ppx: Hep sc FULL CODE PCP: Charlotte Horton Dispo: admit to medical Admission and Anticipated Discharge Date Admission Date: December 21, 2024 Subjective Patient was seen and examined at bedside. Patient reports some improvement in his back pain and spasm. Patient reports eating okay. Patient denies other flulike illness or bowel or bladder incontinence. Physical Exam Physical Exam: Gen: WD/WN, M, lying prone in bed, NAD, A&O x3 HEENT: Normocephalic, atraumatic, conjunctivae moist, sclerae anicteric, mucous membranes moist. Lung: Clear to Auscultation bilaterally, no wheezes/rales/rhonchi Heart: RRR Extremities: No edema, pt requested I did not push his back due to pain and he requested I not perform exam Skin: Warm, no rash, negative turgor. Results & Data Results & Data Vital Signs (Past 12 Hours) Vital Signs Temp Pulse Resp BP Pulse Ox O2 Del Method 12/22/24 07:30 Room Air 12/22/24 07:00 36.6 C 63 20 103/65 96 Room Air
[2024-12-22] MEDS: HEPARIN SOD 5,000 UNIT/0.5 ML VIAL SQ SCH (20:50)
[2024-12-23 07:15] LABS: Hematocrit (blood only) 39.9 % (42.0-52.0); Hemoglobin 14.4 g/dl (14.0-18.0); Mean Corpuscular Hemoglobin 30.8 pg (25.0-34.0); Mean Corpuscular Hgb Conc 36.1 g/dL (32.0-36.0); Mean Corpuscular Volume 85.3 fL (80.0-100.0); Mean Platelet Volume 9.7 fL (9.4-12.4); Platelet Count 260 K/uL (130-400); RDW Coefficient of Variation 13.2 % (11.5-14.5); RDW Standard Deviation 40.3 fL (36.4-46.3); Red Blood Count 4.68 M/uL (4.70-6.10)
[2024-12-23 07:23] LABS: BUN Creatinine Ratio 16.5 (10-20); Calcium 8.1 mg/dl (8.6-10.3); Creatinine Clr Calc Pharmacy 132.1 ml/min; Magnesium 1.8 mg/dl (1.7-2.4); Phosphorus 3.4 mg/dl (2.5-4.9)
[2024-12-23] MEDS ORDERED: methylPREDNISolone 4 MG TAB, 6 DAY TAPER PO SCH (09:00)
--- NOTE | 2024-12-23 09:49 | Pain Management Consultation ---
Date of Consultation December 23, 2024 Assessment & Plan (1) Discogenic low back pain: (2) Ambulatory dysfunction: Plan 1. Recommend weight loss, course of physical therapy and overall conditioning to minimize pain. Recommend patient continue with his typical stretching regimen but recommend formal physical therapy to learn new techniques/exercise for pain control. 2. Recommend Medrol Dosepak to minimize pain and spasm, heat application, rotation from baclofen to Robaxin. Orders are written 3. Recommend he follow-up with [facility] pain management for consideration of repeat injection as he already has established a therapeutic relationship with that office. 4. May continue with nonsteroidal anti-inflammatories as current. As needed judicious utilization of opiates though he has not required any thus far. 5. Please call with any questions, pain management to sign off. History of Present Illness Attending Physician: Romina Holt MD History of Present Illness 39-year-old male who presented to the [facility] emergency room on 12/21/2024 with intractable axial low back pain. He reports that his pain is sharp and characterized best as weakness. He states that " it feels like my muscles are not able to hold me" and therefore is unable to stand. He reports that he was bending at a 15 degree angle trying to throw something away and felt exquisite pain. He has a prior history of working with [facility] pain management and having an epidural steroid injection by Dr. Cuello in October 2023 with significant benefit. He reports he has not followed up with their office recently. Pain is approximately L3-S1 left equal to right without radicular symptoms. He denies bowel or bladder incontinence, motor weakness, foot drop, fever, chills, night sweats, falls. He reports pain fluctuates between spasm and weakness but predominantly weakness. Upon entrance to his room he is laying in the prone position playing on his phone eating breakfast. Since his admission he has utilized ibuprofen but no significant amounts of opiates. He finds modest benefit from baclofen. Pain Assessment Full Body Front + Back: 2 1. [facility] Combined Pain Scale: 5-Moderate - Cannot perform normal tasks without increase in pain Allergies Allergy/AdvReac Type Severity Reaction Status Date / Time fentanyl Allergy Intermediate SHORTNESS Verified 12/21/24 08:16 OF BREATH Penicillins Allergy Unknown Verified 12/21/24 08:16 Home Medications Medication Instructions Recorded Confirmed Type loratadine 10 mg tablet (Claritin) 10 mg PO HS 07/23/21 12/21/24 History montelukast 10 mg tablet 10 mg PO HS 07/23/21 12/21/24 History (Singulair) fluticasone fur. 200 mcg-umeclid 1 inh inhalation DAILY 12/21/24 12/21/24 History 62.5 mcg-vilant 25 mcg inhalat.powder (Trelegy Ellipta) guaifenesin 600 mg tablet, 600 mg PO Q12H 12/21/24 12/21/24 History extended release 12 hr Patient History Medical History Dyslipidemia (06/28/12) Asthma (06/28/12) Anxiety disorder (06/28/12) Allergic rhinitis (06/28/12) Surgical History No history of previous surgery Family History Other Diabetes Social History Smoking Status: Never smoker Hx Alcohol Use: No Hx Substance Use: No Preferred Language: Spanish Communication Ability: Effective Custom Applicator Required: No Beliefs That Will Affect Care: None Current Living Situation: Spouse Other Information That Helps Us Care for You: No Feels Safe at Home: Yes Safety Concerns: Feels Safe At This Time Assistive Devices: Cane and Glasses Physical Exam 2 Physical Exam: Constitutional: Well-developed, well-nourished, healthy-appearing, morbidly obese Psych: Awake, alert, and oriented 3 with normal affect and mood. Recent memory appears grossly intact Eyes: Pupils are equally round and reactive to light with normal size pupils, eyelids appear normal Ear, nose, mouth, and throat: Moist nasal and oral membranes, lips and tongues appear normal, no external ear abnormalities are noted Neck: The trachea is midline without deviation Respiratory: Normal respiratory effort without distress, no audible wheezes or rhonchi CV: Normal S1 and S2, warm distal extremities Chest: Deferred GI/abdomen: protuberant Musculoskeletal: Head is normocephalic and atraumatic, gait not observed, but able to log roll without difficulty Cervical: Lordotic curve: Normal Range of motion is normal with extension, flexion, side-bending, rotation Strength: Strength is grossly equal bilaterally with 5 out of 5 strength in all planes Lumbar: Lordotic curve: Normal Range of motion is normal with extension, flexion, side-bending, rotation Tenderness: moderately tender over the axial midline Facet provocation: Negative bilaterally Straight leg raise: Negative bilaterally Step-off injuries: None Strength: Strength is equal bilaterally with 5 out of 5 strength in all planes Sensation of lower extremities: Intact bilaterally Deep tendon reflexes: Rated at 2+ in bilateral L4 and S1 Myofascial spasm:mild-moderate lumbar paravertebral spasm. A few scattered discrete trigger points noted Greater trochanters: Nontender bilaterally Sacroiliac joints: Nontender bilaterally Pathologic reflexes noted: None Skin: No rashes, lesions, ulcers, or induration noted Neuro: No nystagmus noted, the tongue is midline, the patient is able to rotate their head bilaterally : Deferred Results (Pain Clinic) Diagnostic Review MRI: non enhanced, reports reviewed and findings discussed with patient MRI Findings: 12/21/24 MR lumbar spine wo con CLINICAL HISTORY: 39 years-old Male with Low back pain, leg weakness. Acute low back pain with radicular symptoms COMPARISON: 10/03/2017 TECHNIQUE: Multiplanar, multi sequence MRI of the lumbar spine was performed without intravenous contrast. FINDINGS: Homogeneously decreased T1 and T2 marrow signal is similar to prior and appears benign. Manager Completions localizer images demonstrate no gross extraspinal abnormality. Conus medullaris terminates at L1-L2. There is normal signal within the imaged thoracic spinal cord. Tiny sacral Tarlov cysts. There is no acute fracture, subluxation, endplate erosion or marrow replacing process. The imaged intra- abdominal paraspinal structures are unremarkable. Study is mildly motion degraded. T12-L1: No central canal or neural foraminal stenosis. L1-L2: No central canal or neural foraminal stenosis. L2-L3: Mild intervertebral disc space narrowing has progressed from prior. Spondylitic spurring with small posterior annular disc bulge and central annular fissure. No central canal or neural foraminal stenosis. L3-L4: Mild intervertebral disc space narrowing has progressed from prior. Spondylitic spurring with small posterior annular disc bulge and annular fissure. Mild bilateral foraminal narrowing. L4-L5: Progressively worsened moderate intervertebral disc space narrowing with Modic type II endplate degeneration. Spondylitic spurring with circumferential annular disc bulge, central annular fissure and mild facet arthrosis. Mild narrowing of the lateral recesses. Patent central canal. Mild bilateral foraminal narrowing has progressed. L5-S1: Mild to moderate intervertebral disc space narrowing is similar to prior. Spondylitic spurring with circumferential annular disc bulge and mild facet arthrosis. Patent central canal. Mild bilateral foraminal narrowing is similar to slightly progressed. IMPRESSION: 1. Progressively worsening discogenic degeneration compared to the 10/03/2017 study with mild multilevel neural foraminal narrowing. 2. No high-grade central canal or foraminal stenosis.
[2024-12-23] MEDS: methylPREDNISolone 4 MG TAB PO SCH ×2 (10:54→12:55)
[2024-12-23] MEDS: METHOCARBAMOL 500 MG TABLET PO PRN (12:52)
--- NOTE | 2024-12-23 16:09 | Hospitalist Progress Note ---
Date of Service December 23, 2024 Assessment & Plan (1) Discogenic low back pain: (2) Ambulatory dysfunction: (3) Elevated random blood glucose level: Plan 39 yr old M who has a significant PMH of moderate persistent asthma, morbid obesity, hypertriglyceridemia, IBS, Lumbar DDD and depression with anxiety who presents to ED 2/2 low back pain. Lumbar Spine MRI: IMPRESSION: 1. Progressively worsening discogenic degeneration compared to the 10/03/2017 study with mild multilevel neural foraminal narrowing.2. No high-grade central canal or foraminal stenosis. #Discogenic low back pain #ambulatory dysfunction pt felt he is unable to manage pain at home, hence was admitted. Scheduled Tylenol and ibuprofen alternating, c/w pepcid while on NSAIDs schedule baclofen 10mg TID consult pain management for possible TPI ( pt received epidural through Dr. Cuello in Oct with good results) Ortho spine evaled, appreciate recs. PT/OT-- Patient noncompliant of physical therapy. Pain management evaluated, recommends Medrol Dosepak, follow-up with [facility] pain management clinic, agrees with NSAIDs, recommends Robaxin instead of baclofen. #Elevated random glucose #T2Dm, new diagnosis 258, also elevated in random testing at 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 #Hypertriglyceridemia: encourage diet/lifestyle modifications, on 10/24 Trig 325, defer tx to PCP #Morbid obesity: A1C 7.6, encourage diet/lifestyle mod as it would likely help out MSK issues as well DVT ppx: Hep sc FULL CODE PCP: Charlotte Horton Dispo: admit to medical Admission and Anticipated Discharge Date Admission Date: December 21, 2024 Subjective Patient was seen and examined at bedside. Patient reports some improvement in his back pain and spasm. He is noncompliant to physical therapy and does not want bowel regimen. Patient reports eating okay. Patient denies other flulike illness or bowel or bladder incontinence. Physical Exam Physical Exam: Gen: WD/WN, M, lying prone in bed, NAD, A&O x3 HEENT: Normocephalic, atraumatic, conjunctivae moist, sclerae anicteric, mucous membranes moist. Lung: Clear to Auscultation bilaterally, no wheezes/rales/rhonchi Heart: RRR Extremities: No edema, pt requested I did not push his back due to pain and he requested I not perform exam Skin: Warm, no rash, negative turgor. Results & Data Results & Data Vital Signs (Past 12 Hours) Vital Signs Temp Pulse Resp BP BP Pulse Ox O2 Del Method 12/23/24 14:41 37.1 C 73 18 113/66 97 Room Air 12/23/24 07:39 36.9 C 74 18 125/70 97 Room Air 12/23/24 07:20 Room Air
[2024-12-24] MEDS: methylPREDNISolone 4 MG TAB PO SCH ×2 (06:05→20:34)
[2024-12-24] MEDS: FAMOTIDINE 20 MG TAB PO SCH (09:31)
--- NOTE | 2024-12-24 15:16 | Hospitalist Progress Note ---
Date of Service December 24, 2024 Assessment & Plan (1) Discogenic low back pain: (2) Ambulatory dysfunction: (3) Elevated random blood glucose level: Plan 39 yr old M who has a significant PMH of moderate persistent asthma, morbid obesity, hypertriglyceridemia, IBS, Lumbar DDD and depression with anxiety who presents to ED 2/2 low back pain. Lumbar Spine MRI: IMPRESSION: 1. Progressively worsening discogenic degeneration compared to the 10/03/2017 study with mild multilevel neural foraminal narrowing.2. No high-grade central canal or foraminal stenosis. #Discogenic low back pain #ambulatory dysfunction pt felt he is unable to manage pain at home, hence was admitted. Scheduled Tylenol and ibuprofen alternating, c/w pepcid while on NSAIDs schedule baclofen 10mg TID consult pain management for possible TPI ( pt received epidural through Dr. Cuello in Oct with good results) Ortho spine evaled, appreciate recs. PT/OT-- Patient noncompliant of physical therapy. Pain management evaluated, recommends Medrol Dosepak, follow-up with [facility] pain management clinic, agrees with NSAIDs, recommends Robaxin instead of baclofen. Pt reports some improvement and feels he will be ready to leave in next 1-2 days. 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 Pt agreeable to metformin on dc. #Hypertriglyceridemia: encourage diet/lifestyle modifications, on 10/24 Trig 325, defer tx to PCP #Morbid obesity: A1C 7.6, encourage diet/lifestyle mod as it would likely help out MSK issues as well DVT ppx: Hep sc FULL CODE PCP: Charlotte Horton Dispo: admit to medical Admission and Anticipated Discharge Date Admission Date: December 21, 2024 Subjective Patient was seen and examined at bedside. Patient reports ongoing improvement in his back pain and spasm, is moving bowels, and thinks he will be likely ready in next 1-2 days to leave. He is noncompliant with physical therapy and does not want bowel regimen. Patient reports eating okay. Patient denies other flulike illness or bowel or bladder incontinence. Physical Exam Physical Exam: Gen: WD/WN, M, lying prone in bed, NAD, A&O x3 HEENT: Normocephalic, atraumatic, conjunctivae moist, sclerae anicteric, mucous membranes moist. Lung: Clear to Auscultation bilaterally, no wheezes/rales/rhonchi Heart: RRR Extremities: No edema, pt requested I did not push his back due to pain and he requested I not perform exam Skin: Warm, no rash, negative turgor. Results & Data Results & Data Vital Signs (Past 12 Hours) Vital Signs Temp Pulse Pulse Resp BP BP Pulse Ox 12/24/24 10:04 128/60 12/24/24 08:14 58 L 122/75 89/51 L 96 12/24/24 07:35 12/24/24 07:05 36.6 C 60 14 90/53 L 96 O2 Del Method 12/24/24 10:04 12/24/24 08:14 Room Air 12/24/24 07:35 Room Air 12/24/24 07:05 Room Air
[2024-12-24] MEDS: MELATONIN 3 MG TAB PO PRN (20:33)
[2024-12-25] MEDS: methylPREDNISolone 4 MG TAB PO SCH (06:07)
[2024-12-25 07:46] VITALS: BP 124/79; PULSE 69; RESP 18; TEMP 97.2; O2SAT 97
[2024-12-25 07:56] LABS: Hematocrit (blood only) 41.9 % (42.0-52.0); Hemoglobin 15.2 g/dl (14.0-18.0); Mean Corpuscular Hemoglobin 30.7 pg (25.0-34.0); Mean Corpuscular Hgb Conc 36.3 g/dL (32.0-36.0); Mean Corpuscular Volume 84.6 fL (80.0-100.0); Mean Platelet Volume 9.2 fL (9.4-12.4); Platelet Count 284 K/uL (130-400); RDW Coefficient of Variation 12.8 % (11.5-14.5); RDW Standard Deviation 39.1 fL (36.4-46.3); Red Blood Count 4.95 M/uL (4.70-6.10); White Blood Count 12.21 K/ul (4.8-10.8)
[2024-12-25 08:37] LABS: BUN Creatinine Ratio 23.7 (10-20); Calcium 8.8 mg/dl (8.6-10.3); Creatinine Clr Calc Pharmacy 129.2 ml/min; Potassium 4.4 mmol/L (3.5-5.1)
[2024-12-25] MEDS: oxyCODONE HCL IR 5 MG TAB (IMMEDIATE RELEASE) PO PRN (11:08)
--- NOTE | 2024-12-25 12:05 | Discharge Summary ---
Date of Service December 25, 2024 Admission HPI Per Admitting Provider This is a 39 yr old M who has a significant PMH of moderate persistent asthma, morbid obesity, hypertriglyceridemia, IBS, Lumbar DDD and depression with anxiety who presents to ED 2/2 low back pain. Hx obtained from ED provider, pt and external records. Pt has hx of chronic low back pain. His was last hospitalized in 2018 for similar sx. He follows with [facility] Pain management and last received a Corticosteroid injection in 10/2023 that went well per pt. He states last night around 8p.m. his back just, "went out." He was in the process of going upstairs and thankfully he made it upstairs before the, "muscle spasm," hit. The pain was so severe he was unable to get out of bed this morning and EMS was summoned. He states firefighters had to carry him down the stairs. He states pain is in his bilateral lower back, but denies any radicular sx or bowel/bladder incontinence/anesthesia at this time. At home he was trying baclofen with mild relief. In the past he was on gabapentin, ibuprofen and baclofen which worked well. He feels he is unable to be discharged home and manage his sx at home due to being unable to walk. In ED pt was hemodynamically stable. His labwork was unremarkable except for bsg at 258. He denies prior hx of T2DM, but states he drinks 4-5 pepsi drinks daily. He underwent MRI P rogressively worsening discogenic degeneration compared to the 10/03/2017 study with mild multilevel neural foraminal narrowing. 2. No high-grade central canal or foraminal stenosis. He is being admitted for pain control. Admission Exam Per Admitting Provider Gen: WD/WN, M, lying prone in ED, NAD, A&O x3 HEENT: Normocephalic, atraumatic, conjunctivae moist, sclerae anicteric, mucous membranes moist. Lung: Clear to Auscultation bilaterally, no wheezes/rales/rhonchi Heart: RRR Extremities: No edema, pt requested I did not examine/push his back due to pain and he requested I not perform exam Skin: Warm, no rash, negative turgor. Principal Diagnosis Discogenic low back pain Diabetes mellitus Discharge Exam Constitutional + well hydrated; no acute distress Eyes PERRL, conjunctivae normal, anicteric sclerae ENMT external ear and nose normal, oropharynx normal Respiratory normal respiratory effort, lungs clear to auscultation Cardiovascular Rate/Rhythm: regular rate and regular rhythm Gastrointestinal (Abdomen) normal bowel sounds, soft, nontender, no hepatosplenomegaly Musculoskeletal no cyanosis or clubbing, extremities motor strength 5/5 Neurologic PERRL, EOMI, accommodation nl, no face palsy, no dysarthria Psychiatric A+Ox3, euthymic affect Discharge Data Allergies Allergy/AdvReac Type Severity Reaction Status Date / Time fentanyl Allergy Intermediate SHORTNESS Verified 12/21/24 08:16 OF BREATH Penicillins Allergy Unknown Verified 12/21/24 08:16 Consultations 12/21/24 11:06 ED Decision to Admit Stat 12/21/24 12:38 Consult Orthopedic Spine Surgery Routine 12/21/24 13:09 Consult Pain Management Routine Ordered Studies 12/21/24 07:30 MR lumbar spine wo con Stat Diabetes Follow up Diabetes Follow-up Needed for Newly Diagnosed Diabetes Hospital Course (1) Discogenic low back pain: (2) Ambulatory dysfunction: (3) Elevated random blood glucose level: Plan 39 yr old M who has a significant PMH of moderate persistent asthma, morbid obesity, hypertriglyceridemia, IBS, Lumbar DDD and depression with anxiety who presents to ED 2/2 low back pain. Lumbar Spine MRI noted Progressively worsening discogenic degeneration compared to the 10/03/2017 study with mild multilevel neural foraminal narrowing #Discogenic low back pain #Ambulatory dysfunction Patient felt he is unable to manage pain at home, hence was admitted. Ortho and pain management evaluated inpatient Started on medrol tapering dose, robaxin and ibuprofen Pain improved and ambulatory dysfunction improved. Able to move around independently and took shower by himself today Patient to follow up with [facility] #Diabetes mellitus, new diagnosis HbA1C 7.6 Provided DM education Educated on need for weight loss and diet management Started on Metformin ER 500mg daily Prescription for glucometer, strip and lancet sent #Hypertriglyceridemia: #Morbid obesity: Diet and Lifestyle modifications, on 10/24 Trig 325 PCP to monitor Total Time Total Time Spent Total Time Spent (In Minutes): 35 Total Time Includes: Examination of the Patient, Discharge Planning and Medication Reconciliation Discharge Plan Discharge Items Patient Disposition: Home - Self-Care Reason For Visit: BACK PAIN Discharge Diagnosis: Discogenic low back pain Diabetes mellitus Activity: Resume your previous activity Non-emergency contact: Primary Care Provider and Pain Management Call non-emergency contact if: you have any medication questions and your symptoms worsen Follow-up/Referrals: Charlotte Horton DO [Primary Care Provider] - (Date & Time 12/31/2024 3:00 PM Provider: Charlotte Horton DO [facility] ) Amy Krueger PA-C [Outside Practitioners] - (The office will call you for a follow up appointment.) Diet: Carb Consistent or DM2 Addtl Attending Provider Instructions: Mr Dickinson You were hospitalized and managed for the above listed diagnoses. You are being discharged home to follow up with your Primary Doctor and Pain management. You are being discharged on tapering dose of methylprednisolone as follows: -Methylprednisolone 4mg in the afternoon, evening and bedtime today -Methylprednisolone 4mg in the morning, afternoon and bedtime tomorrow 12/26/24 -Methylprednisolone 4mg in the morning and bedtime on 12/27/24 -Methylprednisolone 4mg in the morning of 12/28/24 and then stop You are also started on metformin once a day for your diabetes Please ensure follow up with your Primary Doctor for continued management Please use ibuprofen as needed for pain. Only use oxycodone for severe pain not controlled by ibuprofen Take prilosec while on methylprednisolone Please ensure follow up with Pain management. It was a pleasure taking care of you Pending Studies at Discharge: No Stand-Alone Forms: My [facility] [employer], Smoking Cessation Medications and DC Order Prescriptions: New methocarbamol 500 mg Tablet 500 mg PO TID PRN (Reason: muscle spasm) Qty: 90 0RF ibuprofen 600 mg Tablet 600 mg PO Q8H PRN (Reason: pain) Qty: 30 0RF lidocaine 5 % Adhesive Patch,Medicated 1 patch transdermal QAM Qty: 30 0RF metformin 500 mg tablet extended release 24 hr 500 mg PO DAILY Qty: 30 0RF (DME) blood-glucose meter [True Metrix Glucose Meter] Misc See Rx Instructions .Route Qty: 1 0RF Rx Instructions: Check once a day. As directed (DME) True Metrix Glucose Test Strip Strip See Rx Instructions .Route Qty: 100 0RF Rx Instructions: Check once a day As directed (DME) lancets [TRUEplus Lancets] 30 gauge misc See Rx Instructions .Route Qty: 100 0RF Rx Instructions: Check once a day As directed methylprednisolone 4 mg tablet See Rx Instructions .ROUTE .COMPLEX Qty: 9 0RF Rx Instructions: 4mg in the afternoon, evening and bedtime today then 4mg in the morning, afternoon and bedtime tomorrow 12/26/24; 4mg in the morning and bedtime on 12/27/24; 4mg in the morning of 12/28/24 and then stop omeprazole 20 mg capsule,delayed release(DR/EC) 20 mg PO DAILY Qty: 7 0RF oxycodone 5 mg tablet 5 mg PO TID PRN (Reason: pain, severe) Qty: 7 0RF Continued montelukast [Singulair] 10 mg tablet 10 mg PO HS loratadine [Claritin] 10 mg Tablet 10 mg PO HS guaifenesin 600 mg Tablet Extended Release 12hr 600 mg PO Q12H Trelegy Ellipta 200-62.5-25 mcg blister with device 1 inh INHALATION DAILY Discharge Orders: Discharge Order (Routine); Ordered 12/25/24 Ordered By: Armida Peoples Admission Data Admit Date/Time: 12/21/24 12:39 Attending Provider: Armida Peoples I. Admit Provider: Alisson Delgado Primary Care Provider: Charlotte Horton Other Providers: Myron Mishra; Leilani Quintana; Alisson Delgado; Romina Holt Other Interventions: Discharge Summary Assessment (RN) Last Done: 12/25/24 12:11
[2024-12-26] MEDS ORDERED: methylPREDNISolone 4 MG TAB PO SCH (07:00)
[2024-12-27] MEDS ORDERED: methylPREDNISolone 4 MG TAB PO SCH (07:00)
[2024-12-28] MEDS ORDERED: methylPREDNISolone 4 MG TAB PO SCH (07:00)
== END 2024-12-25 14:56 | disposition home or self-care (01) | DRG 552 ==
LOC: ED 07:15 → SUATTDRO 12:39 → INTOOBSV 12:39 → 3N 12:39